=== PATIENT | female | born 1945 | race Caucasian/White ===

== ENCOUNTER 2018-08-24 11:42 | Emergency (ER) | payer OTHER ==
[2018-08-24 13:01] LABS: Hematocrit 44.5 % (36.0-45.0); RBC Red Blood Cell Count 4.81 M/uL (3.86-4.86)
--- NOTE | 2018-08-24 13:12 | RAD REPORT ---
EXAM DESCRIPTION: US - Extremity Venous Uni Ltd - 08/24/2018 1:08 pm CLINICAL HISTORY: Right leg pain and swelling COMPARISON: None. TECHNIQUE: Real-time sonographic evaluation of the right lower extremity deep venous systems was per formed. FINDINGS: Normal compressibility, flow augmentation, phasic flow and spontaneous flow are identified in the right lower extremity common femoral, superficial femoral, popliteal and posterior tibial vei ns. No intraluminal filling defects seen. IMPRESSION: No DVT in the right lower extremity.
[2018-08-24] MEDS ORDERED: MORPHINE 2 MG/ML SYR ONE (14:46)
[2018-08-24] MEDS ORDERED: ONDANSETRON 4 MG/2 ML VIAL ONE (14:46)
--- NOTE | 2018-08-24 14:50 | ER ---
Nurse's Notes [facility] Name: Renato Contreras Age: 73 yrs Sex: Female : 1945 Arrival Date: 08/24/2018 Time: 11:43 Bed 16 Private MD: Rayshawn Baum E Diagnosis: Cellulitis of the Right Lower Leg Presentation: 08/24 12:02 Presenting complaint: Child states: Hx of PAD w/ wound to R lower leg, had bypass ph approx 6 months ago in hopes of wound healing, reports that wound has since worsened and is now all the way around the R leg, redness and weeping noted, denies fever N/V/D. Transition of care: patient was not received from another setting of care. Onset of symptoms was August 24, 2018. Risk Assessment: Do you want to hurt yourself or someone else? Patient reports no desire to harm self or others. Initial Sepsis Screen: Does the patient meet any 2 criteria? No. Patient's initial sepsis screen is negative. Does the patient have a suspected source of infection? Yes: Skin breakdown/wound. Care prior to arrival: None. 12:02 Method Of Arrival: Wheelchair ph 12:02 Acuity: BRODY 3 ph Historical: - Allergies: 12:05 No Known Drug Allergies; ph - PMHx: 12:05 PAD; Atrial Fib; ph - PSHx: 12:05 Hysterectomy; Knee surgery; endovasular ablation; bypass; ph - Immunization history:: Adult Immunizations unknown. - Social history:: Smoking status: Patient/guardian denies using tobacco. - Ebola Screening: : No symptoms or risks identified at this time. Screenin:29 Abuse screen: Denies threats or abuse. Denies injuries from another. Nutritional aj screening: No deficits noted. Tuberculosis screening: No symptoms or risk factors identified. Fall Risk None identified. Assessment: 13:29 General: Appears in no apparent distress. comfortable, obese, Behavior is calm, aj cooperative, appropriate for age. Pain: Complains of pain in right leg. Neuro: Level of Consciousness is awake, alert, obeys commands, Oriented to person, place, time, situation, Appropriate for age. Respiratory: Airway is patent Respiratory effort is even, unlabored, Respiratory pattern is regular, symmetrical. Derm: Skin is intact, is healthy with good turgor, Skin is pink, warm \T\ dry. normal, Wound noted lateral aspect of right calf, right ankle, right chong and anterior aspect of right ankle. 15:12 Reassessment: Patient appears in no apparent distress at this time. No changes from aj previously documented assessment. Patient and/or family updated on plan of care and expected duration. Pain level reassessed. Patient is alert, oriented x 3, equal unlabored respirations, skin warm/dry/pink. Vital Signs: 12:05 BP 119 / 91; Pulse 82; Resp 18; Temp 98.5(TE); Pulse Ox 96% on R/A; Weight 108.86 kg; ph Height 5 ft. 4 in. (162.56 cm); 13:25 BP 163 / 98; Pulse 72; Resp 16; Temp 98.2(O); Pulse Ox 97% ; mh5 12:05 Body Mass Index 41.20 (108.86 kg, 162.56 cm) ph ED Course: 11:43 Patient arrived in ED. as 11:43 Rayshawn Baum MD is Private Physician. as 11:59 Karissa Fraire, AFNY is Primary Nurse. aj 12:00 Manuel Gomes PA is PHCP. [facility] 12:00 Carlitos Greco MD is Attending Physician. [facility] 12:04 Triage completed. ph 12:05 Arm band placed on Patient placed in an exam room, on a stretcher, on pulse oximetry. ph 12:15 Bed in low position. Call light in reach. Side rails up X 1. Side rails up X2. Warm jp3 blanket given. Verbal reassurance given. 12:15 Pulse ox on. NIBP on. jp3 12:20 Wound culture swab sent to lab. jp3 12:25 Missed attempt(s): 24 gauge in left antecubital area. Bleeding controlled, band aid jp3 applied, catheter tip intact. 12:30 Initial lab(s) drawn, by me, sent to lab. First set of blood cultures drawn by me. jp3 Inserted saline lock: 24 gauge in right wrist, using aseptic technique. Blood collected. 12:45 Second set of blood cultures drawn. jp3 12:53 Lactate Sent. jp3 12:53 Wound Culture Sent. jp3 12:53 Blood Culture Adult (2) Sent. jp3 12:53 Basic Metabolic Panel Sent. jp3 12:53 CBC w/o diff Sent. jp3 13:04 US Extremity Venous Unilateral Ltd In Process Unspecified. EDMS 14:50 Rayshawn Baum MD is Referral Physician. anayeli 15:12 No provider procedures requiring assistance completed. IV discontinued, intact, aj bleeding controlled, No redness/swelling at site. Pressure dressing applied. Administered Medications: 14:23 Drug: Clindamycin 900 mg Route: IVPB; Infused Over: 30 mins; Site: right hand; aj 15:14 Follow up: Response: No adverse reaction; IV Status: Completed infusion; IV Intake: 50mlaj 14:40 Drug: morphine 2 mg Route: IVP; Site: right hand; aj 15:13 Follow up: Response: No adverse reaction; Pain is decreased aj 14:40 Drug: Zofran 4 mg Route: IVP; Site: right hand; aj 15:14 Follow up: Response: No adverse reaction aj Intake: 15:14 IV: 50ml; Total: 50ml. aj Outcome: 14:50 Discharge ordered by . anayeli 15:12 Discharged to home ambulatory, with family. aj 15:12 Condition: good 15:12 Discharge instructions given to patient, family, Instructed on discharge instructions, follow up and referral plans. medication usage, Demonstrated understanding of instructions, follow-up care, medications, Prescriptions given X 2. 15:26 Patient left the ED. aj Addendum: 08/28/2018 13:40 Addendum: Culture Results: Positive wound culture. Bacteria is resistant to, has s s intermediate sensitivity, or is not tested against prescribed antibiotics. Report given to TIFFANY for further evaluation and then to barrelhead inspector for follow up with patient. Phone call Attempt #1 no answer, left VM. Signatures: Dispatcher [employer] EDMS Karissa Fraire, Manuel Benavides RN, PA PA jmm Martinez, Amelia as Smirch, Shelby, RN RN ss Hall, Patricia, RN RN ph Martinez, Maria mh5 Pisarski, Jacob jp3
--- NOTE | 2018-08-24 14:50 | EDPHYS ---
Physician Documentation [facility] Name: Renato Contreras Age: 73 yrs Sex: Female : 1945 Arrival Date: 08/24/2018 Time: 11:43 Bed 16 Private MD: Rayshawn Baum E ED Physician Carlitos Greco HPI: 08/24 12:19 This 73 yrs old Female presents to ER via Wheelchair with complaints of Leg jmm Swelling. 12:19 The complaints affect the lateral aspect of right calf, right calf, right Achilles, jmm medial aspect of right calf and right chong. Onset: The symptoms/episode began/occurred gradually, 2.5 week(s) ago. Modifying factors: The symptoms are alleviated by nothing. the symptoms are aggravated by nothing. Associated signs and symptoms: Pertinent positives: swelling, Pertinent negatives fever, numbness. This is a 73 year old female with a history of atrial fib that presents to the ED with complaints of right lower extremity swelling and redness for 3 weeks worsening today. Patient complains of ongoing pain. Patient denies fever or chills. . Historical: - Allergies: 12:05 No Known Drug Allergies; ph - PMHx: 12:05 PAD; Atrial Fib; ph - PSHx: 12:05 Hysterectomy; Knee surgery; endovasular ablation; bypass; ph - Immunization history:: Adult Immunizations unknown. - Social history:: Smoking status: Patient/guardian denies using tobacco. - Ebola Screening: : No symptoms or risks identified at this time. ROS: 12:19 Constitutional: Negative for fever, chills, and weight loss, Cardiovascular: Negative jmm for chest pain, palpitations, and edema, Respiratory: Negative for shortness of breath, cough, wheezing, and pleuritic chest pain. 12:19 MS/extremity: Positive for erythema, pain, swelling. 12:19 Skin: Positive for erythema, swelling. 12:19 All other systems are negative. Exam: 12:19 Constitutional: This is a well developed, well nourished patient who is awake, alert, jmm and in no acute distress. Head/Face: atraumatic. Eyes: EOMI, no conjunctival erythema appreciated ENT: Moist Mucus Membranes Neck: Trachea midline, Supple Chest/axilla: Normal chest wall appearance and motion. Cardiovascular: Regular rate and rhythm. No edema appreciated Respiratory: Normal respirations, no respiratory distress appreciated Abdomen/GI: Non distended, soft Back: Normal ROM 12:19 Musculoskeletal/extremity: edema noted to the right lower extremity, full dorsalis pulse appreciated, compartments are soft, NVI. 12:19 Skin: erythema and induration noted circumferentially to the right lower leg, TTP. 12:19 Neuro: Orientation: is normal, Mentation: is normal, Memory: is normal. 12:19 Psych: Behavior/mood is pleasant, cooperative. Vital Signs: 12:05 BP 119 / 91; Pulse 82; Resp 18; Temp 98.5(TE); Pulse Ox 96% on R/A; Weight 108.86 kg; ph Height 5 ft. 4 in. (162.56 cm); 13:25 BP 163 / 98; Pulse 72; Resp 16; Temp 98.2(O); Pulse Ox 97% ; mh5 12:05 Body Mass Index 41.20 (108.86 kg, 162.56 cm) ph MDM: 12:19 Patient medically screened. anayeli 21:48 Data reviewed: vital signs, nurses notes. Counseling: I had a detailed discussion with anayeli the patient and/or guardian regarding: the historical points, exam findings, and any diagnostic results supporting the discharge/admit diagnosis, lab results, radiology results, the need for outpatient follow up, to return to the emergency department if symptoms worsen or persist or if there are any questions or concerns that arise at home. Refusal of service: The patient/guardian displays adequate decision making capability and despite a detailed discussion of alternatives, benefits, risks, and consequences refuses: Admission to the hospital for further work-up and treatment. 08/24 12:03 Order name: CBC w/o diff; Complete Time: 13:14 08/24 12:03 Order name: Basic Metabolic Panel; Complete Time: 13:28 08/24 12:03 Order name: Blood Culture Adult (2) 08/24 12:03 Order name: Wound Culture 08/24 12:03 Order name: Lactate; Complete Time: 14:04 08/24 12:23 Order name: US Extremity Venous Unilateral Ltd; Complete Time: 13:14 [facility] 08/24 12:03 Order name: IV; Complete Time: 12:53 08/24 13:04 Order name: Labs - recollect needed; Complete Time: 13:21 ag Administered Medications: 14:23 Drug: Clindamycin 900 mg Route: IVPB; Infused Over: 30 mins; Site: right hand; aj 15:14 Follow up: Response: No adverse reaction; IV Status: Completed infusion; IV Intake: 50mlaj 14:40 Drug: morphine 2 mg Route: IVP; Site: right hand; aj 15:13 Follow up: Response: No adverse reaction; Pain is decreased aj 14:40 Drug: Zofran 4 mg Route: IVP; Site: right hand; aj 15:14 Follow up: Response: No adverse reaction aj Disposition: 08/25 07:51 Co-signature as Attending Physician, Carlitos Greco MD I agree with the assessment and kdr plan of care. Disposition: 08/24/18 14:50 Discharged to Home. Impression: Cellulitis of the Right Lower Leg. - Condition is Stable. - Discharge Instructions: Cellulitis, Adult. - Prescriptions for Clindamycin HCl 300 mg Oral Capsule - take 1 capsule by ORAL route every 6 hours for 10 days; 40 capsule. Ultracet 37.5- 325 mg Oral Tablet - take 1 tablet by ORAL route every 6 hours - for up to 5 days; do not exceed 8 tablets per day.; 20 tablet. - Medication Reconciliation Form, Thank You Letter, Antibiotic Education, Prescription Opioid Use form. - Follow up: Rayshawn Baum MD; When: 2 - 3 days; Reason: Recheck today's complaints, Continuance of care, Re-evaluation by your physician. Signatures: Dispatcher [employer] Karissa Lozoya RN RN aj Rittger, Kevin, MD MD kdr Mickail, Joel, PA PA jmm Gallardo, Ana ag Hall, Patricia, RN RN ph Corrections: (The following items were deleted from the chart) 08/24 15:26 14:50 08/24/2018 14:50 Discharged to Home. Impression: Cellulitis of the Right Lower aj Leg. Condition is Stable. Forms are Medication Reconciliation Form, Thank You Letter, Antibiotic Education, Prescription Opioid Use. Follow up: Rayshawn Baum; When: 2 - 3 days; Reason: Recheck today's complaints, Continuance of care, Re-evaluation by your physician. anayeli
[2018-08-24 15:47] VITALS: BP 163/98; TEMP 98.2; O2SAT 97
== END 2018-08-24 15:26 | disposition home or self-care (01) ==
LOC: ER 11:42
DX: L03.115 Cellulitis of right lower limb (principal); I48.91 Unspecified atrial fibrillation
CPT/HCPCS: 96365; 87040 ×2; 87070; 80048; 36415; 87205; 83605; 87077 ×2; 87186 ×2; 85027; 93971; 96375; 99284; J2270; J2405

== ENCOUNTER 2018-09-19 14:49 | Observation (INO) | payer OTHER ==
[2018-09-19] MEDS ORDERED: FAMOTIDINE 20 MG/2 ML VIAL IV ONE (15:26)
[2018-09-19] MEDS ORDERED: METOPROLOL TARTRATE 5 MG/5 ML INJ IV ONE ×2 (15:26→16:09)
[2018-09-19] MEDS ORDERED: ENOXAPARIN 100 MG/ML SYR SQ ONE (15:26)
[2018-09-19] MEDS ORDERED: NA CHLORIDE 0.9% 1,000 ML ONE ×2 (15:26→16:31)
[2018-09-19] MEDS ORDERED: METOPROLOL TAR 50 MG TAB ONE (15:30)
[2018-09-19 15:37] LABS: Protime INR 1.33
[2018-09-19 15:38] LABS: Absolute Lymphocytes (CBC) 2.8 K/uL (0.7-4.9); Basophils % 0.7 % (0-1.3); Hematocrit 47.1 % (36.0-45.0)
--- NOTE | 2018-09-19 15:43 | EDPHYS ---
Physician Documentation [facility] Name: Renato Contreras Age: 73 yrs Sex: Female : 1945 Arrival Date: 09/19/2018 Time: 14:51 Bed 3 Private MD: Rayshawn Baum E ED Physician Eliu Mora HPI: 09/19 15:24 This 73 yrs old Female presents to ER via Ambulatory with complaints of dread Palpitations. 15:24 The patient presents with a history of irregular heart beat, heart racing. Context: The dread symptoms occur at rest, with light activity. Onset: The symptoms/episode began/occurred just prior to arrival. Duration: The patient or guardian reports a single episode, that is still ongoing. Modifying factors: The symptoms are aggravated by nothing. The symptoms are alleviated by nothing. Associated signs and symptoms: The patient has no apparent associated signs or symptoms. Severity of symptoms: At their worst the symptoms were mild in the emergency department the symptoms are unchanged. Historical: - Allergies: 14:55 No Known Drug Allergies; hj - Home Meds: 16:04 tramadol 50 mg Oral tab 1 tab every 6 hrs PRN [Active]; tw2 - PMHx: 14:55 Atrial Fib; PAD; hj - PSHx: 14:55 Hysterectomy; Knee surgery; endovasular ablation; bypass; hj - Immunization history:: Adult Immunizations. - Social history:: Smoking status: . - Family history:: not pertinent. - Ebola Screening: : Patient denies exposure to infectious person Patient denies travel to an Ebola-affected area in the 21 days before illness onset. ROS: 15:24 Constitutional: Negative for fever, chills, and weight loss, Eyes: Negative for injury, dread pain, redness, and discharge, ENT: Negative for injury, pain, and discharge, Neck: Negative for injury, pain, and swelling, Respiratory: Negative for shortness of breath, cough, wheezing, and pleuritic chest pain, Abdomen/GI: Negative for abdominal pain, nausea, vomiting, diarrhea, and constipation, Back: Negative for injury and pain, : Negative for injury, bleeding, discharge, and swelling, MS/Extremity: Negative for injury and deformity, Skin: Negative for injury, rash, and discoloration, Neuro: Negative for headache, weakness, numbness, tingling, and seizure, Psych: Negative for depression, anxiety, suicide ideation, homicidal ideation, and hallucinations, Allergy/Immunology: Negative for hives, rash, and allergies, Endocrine: Negative for neck swelling, polydipsia, polyuria, polyphagia, and marked weight changes, Hematologic/Lymphatic: Negative for swollen nodes, abnormal bleeding, and unusual bruising. 15:24 Cardiovascular: Positive for palpitations. Exam: 15:24 Constitutional: This is a well developed, well nourished patient who is awake, alert, dread and in no acute distress. Head/Face: Normocephalic, atraumatic. Eyes: Pupils equal round and reactive to light, extra-ocular motions intact. Lids and lashes normal. Conjunctiva and sclera are non-icteric and not injected. Cornea within normal limits. Periorbital areas with no swelling, redness, or edema. ENT: Nares patent. No nasal discharge, no septal abnormalities noted. Tympanic membranes are normal and external auditory canals are clear. Oropharynx with no redness, swelling, or masses, exudates, or evidence of obstruction, uvula midline. Mucous membranes moist. Neck: Trachea midline, no thyromegaly or masses palpated, and no cervical lymphadenopathy. Supple, full range of motion without nuchal rigidity, or vertebral point tenderness. No Meningismus. Chest/axilla: Normal chest wall appearance and motion. Nontender with no deformity. No lesions are appreciated. Respiratory: Lungs have equal breath sounds bilaterally, clear to auscultation and percussion. No rales, rhonchi or wheezes noted. No increased work of breathing, no retractions or nasal flaring. Abdomen/GI: Soft, non-tender, with normal bowel sounds. No distension or tympany. No guarding or rebound. No evidence of tenderness throughout. Back: No spinal tenderness. No costovertebral tenderness. Full range of motion. Skin: Warm, dry with normal turgor. Normal color with no rashes, no lesions, and no evidence of cellulitis. MS/ Extremity: Pulses equal, no cyanosis. Neurovascular intact. Full, normal range of motion. Neuro: Awake and alert, GCS 15, oriented to person, place, time, and situation. Cranial nerves II-XII grossly intact. Motor strength 5/5 in all extremities. Sensory grossly intact. Cerebellar exam normal. Normal gait. Psych: Awake, alert, with orientation to person, place and time. Behavior, mood, and affect are within normal limits. 15:24 Cardiovascular: Rate: tachycardic, Rhythm: irregularly irregular, Pulses: Pulses are 4+ in bilateral radial, brachial, femoral, popliteal, posterior tibial and and dorsalis pedis arteries.. Heart sounds: normal, Edema: is not appreciated, JVD: is not appreciated. Vital Signs: 14:56 BP 138 / 68; Pulse 165; Resp 18; Temp 98.0(O); Pulse Ox 96% on R/A; Weight 108.86 kg; hj Height 5 ft. 4 in. (162.56 cm); Pain 0/10; 15:32 BP 128 / 54; Pulse 155; Resp 19; Pulse Ox 95% on R/A; tw2 15:40 BP 119 / 94; Pulse 150; Resp 19; Pulse Ox 96% ; sv 16:04 BP 101 / 86; Pulse 149; Resp 17; Pulse Ox 95% on R/A; tw2 16:10 BP 79 / 66; Pulse 150; tw2 16:19 BP 84 / 54; Pulse 129; Resp 19; Pulse Ox 95% on R/A; tw2 16:23 BP 127 / 70; Pulse 128; Resp 19; Pulse Ox 95% on R/A; tw2 16:28 BP 119 / 81; Pulse 126; Resp 18; Pulse Ox 95% ; sv 16:33 BP 127 / 58; Pulse 141; Resp 17; Pulse Ox 95% on R/A; tw2 16:51 BP 74 / 60; Pulse 38; tw2 16:57 BP 126 / 57; Pulse 56; Resp 18; Pulse Ox 96% on R/A; tw2 17:11 BP 117 / 58; Pulse 56; Resp 16; Pulse Ox 97% on R/A; tw2 14:56 Body Mass Index 41.19 (108.86 kg, 162.56 cm) hj 16:04 provider aware tw2 16:10 provider notified. tw2 16:19 provider aware. tw2 16:33 provider notified. tw2 16:51 provider notified, pt is NAD, a\T\o x4, EKG at bedside at this time. tw2 MDM: 15:05 Patient medically screened. [facility] 15:26 Data reviewed: vital signs, nurses notes, lab test result(s), EKG, radiologic studies, dread plain films. 09/19 15:09 Order name: Basic Metabolic Panel; Complete Time: 16:52 [facility] 09/19 15:09 Order name: CBC with Diff; Complete Time: 16:07 [facility] 09/19 15:09 Order name: LFT's; Complete Time: 16:52 [facility] 09/19 15:09 Order name: Magnesium; Complete Time: 16:52 [facility] 09/19 15:09 Order name: NT PRO-BNP; Complete Time: 16:52 [facility] 09/19 15:09 Order name: PT-INR; Complete Time: 16:07 [facility] 09/19 15:09 Order name: Troponin (emerg Dept Use Only); Complete Time: 16:52 [facility] 09/19 15:09 Order name: XRAY Chest (1 view); Complete Time: 16:07 [facility] 09/19 15:09 Order name: TSH; Complete Time: 16:52 [facility] 09/19 15:31 Order name: Urine Dipstick--Ancillary (enter results); Complete Time: 16:07 bd 09/19 16:10 Order name: Urine Culture [facility] 09/19 16:32 Order name: T4 Free; Complete Time: 16:52 EDMS 09/19 15:09 Order name: EKG; Complete Time: 15:10 [facility] 09/19 15:09 Order name: Cardiac monitoring; Complete Time: 15:45 [facility] 09/19 16:52 Order name: EKG; Complete Time: 16:55 [facility] 09/19 15:09 Order name: EKG - Nurse/Tech; Complete Time: 15:46 [facility] 09/19 15:09 Order name: IV Saline Lock; Complete Time: 15:45 [facility] 09/19 15:09 Order name: Labs collected and sent; Complete Time: 15:45 [facility] 09/19 15:09 Order name: O2 Per Protocol; Complete Time: 15:45 [facility] 09/19 15:09 Order name: O2 Sat Monitoring; Complete Time: 15:46 [facility] 09/19 16:52 Order name: EKG - Nurse/Tech; Complete Time: 16:58 [facility] Administered Medications: 15:25 Drug: Lopressor 2.5 mg Route: IVP; Site: right forearm; tw2 15:32 Follow up: BP 128 / 54; Pulse 155 bpm; Resp 19 bpm; Pulse Ox 95% RA; Response: No tw2 adverse reaction; No change in condition 15:26 Drug: Pepcid 20 mg Route: IVP; Site: right forearm; tw2 15:41 Follow up: Response: No adverse reaction tw2 15:31 Drug: NS 0.9% 500 ml Route: IV; Rate: bolus; Site: right forearm; tw2 16:21 Follow up: Response: No adverse reaction; IV Status: Completed infusion; IV Intake: tw2 500ml 15:31 Drug: Lopressor (metoprolol TARTRATE) 50 mg Route: PO; tw2 15:46 Follow up: Response: No adverse reaction sv 15:31 Drug: Lopressor 2.5 mg Route: IVP; Site: right forearm; tw2 15:40 Follow up: Response: No adverse reaction; No change in condition; Cardiac rhythm is tw2 unchanged; Other; Other, no adverse condition 15:31 Drug: Lovenox 100 mg Route: Sub-Q; Site: left lower abdomen; tw2 15:39 Follow up: Response: No adverse reaction tw2 16:09 Not Given (pts condition bp 84/64 provider notified.): Lopressor 5 mg IVP once; Hold tw2 for SBP <100 or HR <60. 16:14 Drug: NS 0.9% 1000 ml Route: IV; Rate: 125 ml/hr; Site: right forearm; tw2 17:14 Follow up: IV Status: Infusion continued upon admission tw2 17:50 Follow up: IV Status: Infusion continued upon admission tw2 16:20 Drug: Digoxin 0.5 mg Route: IVP; Site: right forearm; tw2 16:47 Follow up: Response: No adverse reaction tw2 16:20 Drug: Rocephin 1 grams Route: IV; Rate: per protocol; Site: right forearm; tw2 16:25 Follow up: Response: No adverse reaction; IV Status: Completed infusion tw2 16:26 CANCELLED (pts condition): Lopressor 2.5 mg IVP once; Hold for SBP <100 or HR <60. tw2 16:26 CANCELLED (pts condition): Lopressor 2.5 mg IVP once; Hold for SBP <100 or HR <60. tw2 16:38 Drug: Magnesium Sulfate 1 grams Route: IVPB; Infused Over: 1 hrs; Site: right forearm; tw2 16:50 Not Given (Duplicate Order): NS 0.9% 1000 ml IV at 1 bolus Per protocol; 1000 mL bolus tw2 16:56 Drug: NS 0.9% 250 ml Route: IV; Rate: bolus; Site: right forearm; ss 17:10 Follow up: Response: No adverse reaction; IV Status: Completed infusion; IV Intake: tw2 250ml Disposition: 09/19/18 15:43 Hospitalization ordered by Felicia Lawrence for Inpatient Admission. Preliminary diagnosis are Palpitations, Atrial fibrillation and flutter - RVR, Weakness. - Bed requested for Telemetry/MedSurg (Inpatient). - Status is Inpatient Admission. sv - Condition is Stable. - Problem is new. - Symptoms have improved. UTI on Admission? No Signatures: Dispatcher [employer] EDMS Sunni Covarrubias Stephanie, RN RN sv Anderson, Corey, MD MD cha Smirch, Shelby, RN RN ss Rafael Metz RN RN Victoria Dooley RN RN tw2 Corrections: (The following items were deleted from the chart) 15:43 15:43 Hospitalization Ordered by Felicia Lawrence MD for Inpatient Admission. Preliminary dread diagnosis is Palpitations; Atrial fibrillation and flutter; Weakness. Bed requested for Telemetry/MedSurg (Inpatient). Status is Inpatient Admission. Condition is Stable. Problem is new. Symptoms have improved. UTI on Admission? No. dread 16:26 16:13 Lopressor 2.5 mg IVP once; Hold for SBP <100 or HR <60. ordered. dread tw2 16:26 16:13 Lopressor 2.5 mg IVP once; Hold for SBP <100 or HR <60. ordered. dread tw2 16:42 15:43 09/19/2018 15:43 Hospitalization Ordered by Felicia Lawrence MD for Inpatient bd Admission. Preliminary diagnosis is Palpitations; Atrial fibrillation and flutter - RVR; Weakness. Bed requested for Telemetry/MedSurg (Inpatient). Status is Inpatient Admission. Condition is Stable. Problem is new. Symptoms have improved. UTI on Admission? No. dread 17:13 16:52 [place] ordered. dread tw2 17:44 16:42 09/19/2018 15:43 Hospitalization Ordered by Felicia Lawrence MD for Inpatient sv Admission. Preliminary diagnosis is Palpitations; Atrial fibrillation and flutter - RVR; Weakness. Bed requested for Telemetry/MedSurg (Inpatient). Status is Inpatient Admission. Condition is Stable. Problem is new. Symptoms have improved. UTI on Admission? No. bd
--- NOTE | 2018-09-19 15:43 | ER ---
Nurse's Notes [facility] Name: Renato Contreras Age: 73 yrs Sex: Female : 1945 Arrival Date: 09/19/2018 Time: 14:51 Bed 3 Private MD: Rayshawn Baum E Diagnosis: Palpitations;Atrial fibrillation and flutter-RVR;Weakness Presentation: 09/19 14:54 Presenting complaint: Patient states: from wound healing, i was brought here because my hj pulse is high- 160's; denies chest pain; denies SOB;. Transition of care: patient was not received from another setting of care. Onset of symptoms was September 19, 2018. Risk Assessment: Do you want to hurt yourself or someone else? Patient reports no desire to harm self or others. Initial Sepsis Screen: Does the patient meet any 2 criteria? No. Patient's initial sepsis screen is negative. Does the patient have a suspected source of infection? No. Patient's initial sepsis screen is negative. Care prior to arrival: None. 14:54 Method Of Arrival: Ambulatory 14:54 Acuity: BRODY 2 hj 15:04 Acuity: BRODY 1 ss Historical: - Allergies: 14:55 No Known Drug Allergies; hj - Home Meds: 16:04 tramadol 50 mg Oral tab 1 tab every 6 hrs PRN [Active]; tw2 - PMHx: 14:55 Atrial Fib; PAD; hj - PSHx: 14:55 Hysterectomy; Knee surgery; endovasular ablation; bypass; hj - Immunization history:: Adult Immunizations. - Social history:: Smoking status: . - Family history:: not pertinent. - Ebola Screening: : Patient denies exposure to infectious person Patient denies travel to an Ebola-affected area in the 21 days before illness onset. Screenin:00 Fall Risk Secondary diagnosis (15 points) impaired mobility. tw2 15:24 Abuse screen: Denies threats or abuse. Denies injuries from another. Nutritional ss screening: No deficits noted. Tuberculosis screening: Never had TB. Assessment: 15:00 General: Appears in no apparent distress. obese, Behavior is calm, cooperative, tw2 appropriate for age. Pain: Denies pain. Neuro: Level of Consciousness is awake, alert, obeys commands, Oriented to person, place, time, situation. Cardiovascular: Heart tones S1 S2 Patient's skin is warm and dry. Rhythm is SVT. Respiratory: Airway is patent Respiratory effort is even, unlabored, Respiratory pattern is regular, symmetrical, Breath sounds are clear bilaterally. GI: No signs and/or symptoms were reported involving the gastrointestinal system. Abdomen is round non-distended, obese, Bowel sounds present X 4 quads. : No signs and/or symptoms were reported regarding the genitourinary system. EENT: No signs and/or symptoms were reported regarding the EENT system. Derm: No signs and/or symptoms reported regarding the dermatologic system. Musculoskeletal: Range of motion: intact in all extremities. 16:24 Reassessment: Patient appears in no apparent distress at this time. Patient and/or tw2 family updated on plan of care and expected duration. Pain level reassessed. Patient is alert, oriented x 3, equal unlabored respirations, skin warm/dry/pink. 16:52 Reassessment: Patient appears in no apparent distress at this time. pt A\T\O x 3, EKG at tw2 bedside, Dr. Mora aware of pts condition. 16:57 Reassessment: Patient appears in no apparent distress at this time. Patient and/or tw2 family updated on plan of care and expected duration. Pain level reassessed. will continue to monitor pts condition prior to taking pt to floor room. 17:30 Reassessment: Patient appears in no apparent distress at this time. Patient and/or tw2 family updated on plan of care and expected duration. Pain level reassessed. Patient is alert, oriented x 3, equal unlabored respirations, skin warm/dry/pink. Reassessment: Dr. Lawrence at bedside on the floor, pts remained stable, HR 54, BP 112/62 A\T\Ox3, Dr. Lawrence notified of pts change in HR prior to arriving on floor. Vital Signs: 14:56 BP 138 / 68; Pulse 165; Resp 18; Temp 98.0(O); Pulse Ox 96% on R/A; Weight 108.86 kg; hj Height 5 ft. 4 in. (162.56 cm); Pain 0/10; 15:32 BP 128 / 54; Pulse 155; Resp 19; Pulse Ox 95% on R/A; tw2 15:40 BP 119 / 94; Pulse 150; Resp 19; Pulse Ox 96% ; sv 16:04 BP 101 / 86; Pulse 149; Resp 17; Pulse Ox 95% on R/A; tw2 16:10 BP 79 / 66; Pulse 150; tw2 16:19 BP 84 / 54; Pulse 129; Resp 19; Pulse Ox 95% on R/A; tw2 16:23 BP 127 / 70; Pulse 128; Resp 19; Pulse Ox 95% on R/A; tw2 16:28 BP 119 / 81; Pulse 126; Resp 18; Pulse Ox 95% ; sv 16:33 BP 127 / 58; Pulse 141; Resp 17; Pulse Ox 95% on R/A; tw2 16:51 BP 74 / 60; Pulse 38; tw2 16:57 BP 126 / 57; Pulse 56; Resp 18; Pulse Ox 96% on R/A; tw2 17:11 BP 117 / 58; Pulse 56; Resp 16; Pulse Ox 97% on R/A; tw2 14:56 Body Mass Index 41.19 (108.86 kg, 162.56 cm) hj 16:04 provider aware tw2 16:10 provider notified. tw2 16:19 provider aware. tw2 16:33 provider notified. tw2 16:51 provider notified, pt is NAD, a\T\o x4, EKG at bedside at this time. tw2 ED Course: 14:51 Patient arrived in ED. rg4 14:52 Rayshawn Baum MD is Private Physician. rg4 14:55 Triage completed. hj 14:55 Arm band placed on left wrist. hj 15:05 Eliu Mora MD is Attending Physician. dread 15:06 EKG done, by computer technician. reviewed by Eliu Mora MD. sm3 15:24 Patient has correct armband on for positive identification. Placed in gown. Bed in low ss position. Call light in reach. Side rails up X 1. radiation monitor on. Pulse ox on. NIBP on. 15:24 Inserted saline lock: 22 gauge in right forearm, using aseptic technique. Blood ss collected. 15:26 Victoria Dooley, FANY is Primary Nurse. tw2 15:42 Felicia Lawrence MD is Hospitalizing Provider. dread 15:43 XRAY Chest (1 view) In Process Unspecified. EDMS 17:15 No provider procedures requiring assistance completed. Patient admitted, IV remains in tw2 place. Administered Medications: 15:25 Drug: Lopressor 2.5 mg Route: IVP; Site: right forearm; tw2 15:32 Follow up: BP 128 / 54; Pulse 155 bpm; Resp 19 bpm; Pulse Ox 95% RA; Response: No tw2 adverse reaction; No change in condition 15:26 Drug: Pepcid 20 mg Route: IVP; Site: right forearm; tw2 15:41 Follow up: Response: No adverse reaction tw2 15:31 Drug: NS 0.9% 500 ml Route: IV; Rate: bolus; Site: right forearm; tw2 16:21 Follow up: Response: No adverse reaction; IV Status: Completed infusion; IV Intake: tw2 500ml 15:31 Drug: Lopressor (metoprolol TARTRATE) 50 mg Route: PO; tw2 15:46 Follow up: Response: No adverse reaction sv 15:31 Drug: Lopressor 2.5 mg Route: IVP; Site: right forearm; tw2 15:40 Follow up: Response: No adverse reaction; No change in condition; Cardiac rhythm is tw2 unchanged; Other; Other, no adverse condition 15:31 Drug: Lovenox 100 mg Route: Sub-Q; Site: left lower abdomen; tw2 15:39 Follow up: Response: No adverse reaction tw2 16:09 Not Given (pts condition bp 84/64 provider notified.): Lopressor 5 mg IVP once; Hold tw2 for SBP <100 or HR <60. 16:14 Drug: NS 0.9% 1000 ml Route: IV; Rate: 125 ml/hr; Site: right forearm; tw2 17:14 Follow up: IV Status: Infusion continued upon admission tw2 17:50 Follow up: IV Status: Infusion continued upon admission tw2 16:20 Drug: Digoxin 0.5 mg Route: IVP; Site: right forearm; tw2 16:47 Follow up: Response: No adverse reaction tw2 16:20 Drug: Rocephin 1 grams Route: IV; Rate: per protocol; Site: right forearm; tw2 16:25 Follow up: Response: No adverse reaction; IV Status: Completed infusion tw2 16:26 CANCELLED (pts condition): Lopressor 2.5 mg IVP once; Hold for SBP <100 or HR <60. tw2 16:26 CANCELLED (pts condition): Lopressor 2.5 mg IVP once; Hold for SBP <100 or HR <60. tw2 16:38 Drug: Magnesium Sulfate 1 grams Route: IVPB; Infused Over: 1 hrs; Site: right forearm; tw2 16:50 Not Given (Duplicate Order): NS 0.9% 1000 ml IV at 1 bolus Per protocol; 1000 mL bolus tw2 16:56 Drug: NS 0.9% 250 ml Route: IV; Rate: bolus; Site: right forearm; ss 17:10 Follow up: Response: No adverse reaction; IV Status: Completed infusion; IV Intake: tw2 250ml Intake: 16:21 IV: 500ml; Total: 500ml. tw2 17:10 IV: 250ml; Total: 750ml. tw2 Outcome: 15:43 Decision to Hospitalize by Provider. dread 17:16 Admitted to Med/surg accompanied by nurse, via stretcher, room 231, on monitor, with tw2 chart, Report called to FANY oMreno 17:16 Condition: stable 17:16 Instructed on the need for admit. 17:44 Patient left the ED. sv Signatures: Dispatcher [employer] EDAlyse Lott, RN RN Eliu Ruff MD MD cha Smirch, Shelby RN RN Rafael Arana RN RN hj Wise, Tara, RN RN Luann Browne 4 Regina Chang 3 Corrections: (The following items were deleted from the chart) 14:58 14:56 BP 138 / 68; Pulse 155bpm; Resp 18bpm; Pulse Ox 96% RA; Temp 98.0F Oral; 108.86 hj kg; Height 5 ft. 4 in.; BMI: 41.2; Pain 0/10; hj
--- NOTE | 2018-09-19 15:44 | RAD REPORT ---
EXAM DESCRIPTION: RAD - Chest Single View - 09/19/2018 3:39 pm CLINICAL HISTORY: Cough, tachycardia COMPARISON: November 2014 TECHNIQUE: AP portable chest image was obtained 1534 hours . FINDINGS: No peripheral mass, consolidation or significant failure finding. Lung markings are promin ent but not clearly different from comparison. Resuscitation paddles overlie the lateral right chest and lateral lower left chest. Heart and vasculature are normal. No measurable pleural effusion and no pneumothorax. No acute bony abnormality seen. No acute aortic findings suspected. IMPRESSION: No acute cardiopulmonary process. Chronic interstitial pattern matches comparison study.
[2018-09-19 15:49] LABS: Urine Blood NEGATIVE (NEG); Urine Glucose NEGATIVE (NEG); Urine Protein NEGATIVE (NEG)
[2018-09-19 16:05] LABS: ALT/SGPT 102 U/L (12-78); AST/SGOT 92 U/L (15-37); Albumin 3.2 g/dL (3.4-5.0); Alkaline Phosphatase 153 U/L (45-117); BUN Blood Urea Nitrogen 34 mg/dL (7-18); Bicarbonate 24 mmol/L (21-32); Bilirubin Direct 0.3 mg/dL (0-0.2); Bilirubin Total 1.1 mg/dL (0.2-1.0); Glucose Level 95 mg/dL (74-106); Magnesium 2.4 mg/dL (1.8-2.4); NT PRO-BNP 12983 pg/mL (<125); Potassium 4.1 mmol/L (3.5-5.1); Protein, Total 7.2 g/dL (6.4-8.2); Sodium Level 141 mmol/L (136-145); Troponin (Emerg Dept Use Only) < 0.02 ng/mL (0.0-0.045)
[2018-09-19] MEDS ORDERED: DIGOXIN 0.25 MG/ML AMP ONE (16:14)
[2018-09-19] MEDS ORDERED: CEFTRIAXONE/SWI 1gm 1 GM/10 ML SYR ONE (16:14)
[2018-09-19] MEDS ORDERED: MAGNESIUM SULFATE 1 gm IVPB 1 GM/100 ML BAG IV ONE (16:31)
--- NOTE | 2018-09-19 17:07 | P.HP ---
Certification for Inpatient Patient admitted to: Observation With expected LOS: <2 Midnights Patient will require the following post-hospital care: None Practitioner: I am a practitioner with admitting privileges, knowledge of patient current condition, hospital course, and medical plan of care. Services: Services provided to patient in accordance with Admission requirements found in Title 42 Section 412.3 of the Code of Federal Regulations Patient History Date of Service: 09/19/18 Primary Care Provider: Dr Baum Reason for admission: Chest palpation History of Present Illness: 73 y/o F with H/o Afib, PVD and Hypothyroidism who presented to the ED from [facility] after being found to have HR of 160. 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 She is diagnosed with Afib and hypothyroidism for a while but does not take any medication. Denied any Fever, chills, SOB or Chest pain at this time. In the Er she was Given lopressor 2.5 mg x 2, Metoprolol 50mg PO x 1 and Digxoin x1 which dropped her BP and HR down to 30. Pt still remained asymptomatic. Pt was however admitted to the hospital for Afib with RVR Allergies No Known Drug Allergies Allergy (Unverified 10/28/14 21:56) Unknown Home medications list reviewed: Yes Home Medications: Clindamycin HCl 1 mg PO Q6HR 08/31/18 Tramadol HCl/Acetaminophen [Tramadol-Acetaminophn 37.5-325] 1 tab PO Q6HR PRN - Past Medical/Surgical History Has patient received pneumonia vaccine in the past: No Diabetic: No -: Chronic Bronchitis -: hypothyroidism -: Afib -: PAD -: hysterectomy -: knee surgery -: right lower leg vein ablasion - Family History Father -: Heart disease Mother -: Heart disease - Social History Smoking Status: Former smoker Counseled patient to stop smoking for: more than 10 minutes Smoking therapy provided: Yes Patient receptive to therapy: No Alcohol use: No CD- Drugs: No Caffeine use: Yes Place of Residence: Home Review of Systems 10-point ROS is otherwise unremarkable Physical Examination - Physical Exam General: Alert, In no apparent distress Respiratory: Clear to auscultation bilaterally, Normal air movement Cardiovascular: Normal S1 S2, Irregular heart rate/rhythm Gastrointestinal: Normal bowel sounds, No tenderness Musculoskeletal: No tenderness Integumentary: No rashes Neurological: Normal speech, Normal strength at 5/5 x4 extr, Normal tone Lymphatics: No axilla or inguinal lymphadenopathy - Studies Laboratory Data (last 24 hrs) 09/19/18 15:20: PT 15.5 H, INR 1.33 09/19/18 15:20: WBC 12.2 H, Hgb 15.1 H, Hct 47.1 H, Plt Count 251 09/19/18 15:20: Sodium 141, Potassium 4.1, BUN 34 H, Creatinine 1.42 H, Glucose 95, Magnesium 2.4, Total Bilirubin 1.1 H, AST 92 H, ALT 102 H, Alkaline Phosphatase 153 H Assessment and Plan - Problems (Diagnosis) (1) Atrial fibrillation with rapid ventricular response Onset Date: 10/08/14 Current Visit: No Status: Acute Plan: pt with Afib with RVR with HR in 140-160 most likely 2.2 to Dehydration -Lopressor x 2 given with 1x digxoin. HR down to 30-40 -Currently not taking any medication as home. Will hold on BB due to Low HR after medication in ER. Will start on baby ASA for now -Monitor on cardiac Tele -Will repeat Cardiac ECHO and Cardiology consult. (2) Hypothyroid Current Visit: No Status: Chronic Plan: TSH is 11.04 -Will start on medication Qualifiers: Hypothyroidism type: acquired Qualified Code(s): E03.9 - Hypothyroidism, unspecified (3) BELTRAN (acute kidney injury) Current Visit: Yes Status: Acute Plan: BELTRAN most likely 2.2 to Dehydration -IV fluids at ns 100ml/hr -Will monitor closely (4) LFT elevation Current Visit: Yes Status: Acute Plan: Elevated LFt's Most likely 2.2 to Dehydration -IV fluids for now -If no change will get US of the abdomen -No c/o Offer from patient (5) Venous hypertension of both lower extremities Current Visit: Yes Status: Chronic Plan: Pt with BL Venour HTN ulcer -Seen today at the [facility] by Dr Parsons. -Continue with Wound care Discharge Plan: Home Plan to discharge in: 48 Hours - Advance Directives Does patient have a Living Will: No Does patient have a Durable POA for Healthcare: No - Code Status/Comfort Care Code Status Assessed: Yes Critical Care: No
[2018-09-19] MEDS ORDERED: NA CHLORIDE 0.9% 1,000 ML IV SCH ×2 (17:11→19:00)
[2018-09-19 17:59] VITALS: BMI 41.1
[2018-09-19 22:54] LABS: Urine Appearance CLOUDY; Urine Bilirubin NEGATIVE (NEG); Urine Blood NEGATIVE (NEG); Urine Color YELLOW; Urine Glucose NEGATIVE (NEG); Urine Protein NEGATIVE (NEG); Urine Specific Gravity 1.025 (1.005-1.030); Urine Urobilinogen 0.2 mg/dL (0.2-1.0)
[2018-09-19 22:55] LABS: Urine Microscopic Reflex ORDER UMIC
[2018-09-19 23:38] LABS: Urine Bacteria <20 /HPF (<20); Urine Culture Reflex Order NOT NEEDED; Urine RBC NONE SEEN /HPF (NONE SEEN)
[2018-09-20 06:07] LABS: Absolute Lymphocytes (CBC) 1.6 K/uL (0.7-4.9); Basophils % 0.8 % (0-1.3); Hematocrit 40.8 % (36.0-45.0); Lymphocytes % 14.5 % (15.3-44.8); MPV 10.7 fL (7.6-11.3); RBC Red Blood Cell Count 4.42 M/uL (3.86-4.86)
[2018-09-20 06:26] VITALS: O2SAT 90
[2018-09-20] MEDS ORDERED: LEVOTHYROXINE SOD 0.05 MG TABLET PO SCH (06:30)
[2018-09-20 06:34] LABS: Bilirubin Total 0.8 mg/dL (0.2-1.0); Potassium 4.5 mmol/L (3.5-5.1); Protein, Total 6.2 g/dL (6.4-8.2)
--- NOTE | 2018-09-20 07:11 | EKG ---
Test Date: 2018-09-19 Test Time: 16:51:20 Child Development Director: ALEX MEASUREMENT RESULTS: Intervals: Rate: 56 CO: 156 QRSD: 172 QT: 484 QTc: 467 [place]: P: 39 CO: 156 QRS: -8 T: 234 INTERPRETIVE STATEMENTS: Sinus bradycardia Right bundle branch block T wave abnormality, consider inferolateral ischemia Abnormal ECG Compared to ECG 09/19/2018 15:06:04 Wide-QRS tachycardia no longer present T-wave abnormality still present Possible ischemia still present Electronically Signed On 09-20-18 07:10:55 CDT by Murray Lovelace
--- NOTE | 2018-09-20 07:12 | EKG ---
Test Date: 2018-09-19 Test Time: 15:06:04 Court Reporter: JENNA MEASUREMENT RESULTS: Intervals: Rate: 160 MA: QRSD: 130 QT: 328 QTc: 535 [place]: P: MA: QRS: 249 T: 84 INTERPRETIVE STATEMENTS: Atrial flutter with 2:1 AV block Right bundle branch block T wave abnormality, consider lateral ischemia Abnormal ECG Compared to ECG 10/10/2014 09:46:24 Atrial flutter with 2:1 AV block is now present Sinus bradycardia no longer present Electronically Signed On 09-20-18 07:12:37 CDT by Murray Lovelace
[2018-09-20] MEDS ORDERED: ASPIRIN 81 MG CHEWABLE TABLET PO SCH (09:00)
[2018-09-20] MEDS ORDERED: METOPROLOL TAR 50 MG TAB PO SCH (09:00)
[2018-09-20] MEDS ORDERED: ENOXAPARIN 100 MG/ML SYR SQ SCH (09:00)
--- NOTE | 2018-09-20 10:48 | CON ---
History Of Present Illness: Mrs. Contreras came to the hospital with atrial flutter. The actual chief complaint did not seem to be related to the heart, but her heart rate was 150. She was in atrial flutter with 2:1 block. I think she had some weakness and she was [facility] by Dr. Stephen. The patient has a history of atrial fib and flutter in the past. In 2014, we started her on the usual medications to control it. She stopped that, in the meantime, has not come to any followup. She was on an anticoagulant and Betapace and stopped both. The only medicine she reports taking now is tramadol. She is in the [facility] because of the wound on her right foot. She has venous stasis ulcers on her feet that have poor healing. She has no allergies. Social History: Denies tobacco use. Denies any history of diabetes, coronary heart disease, heart failure. She does remember that she had atrial fibrillation. Physical Examination: General: She is 5 feet 4 inches, 239 pounds. Morbidly obese. HEENT: Normal. Lungs: Clear. Heart: Regular rate and rhythm going about 60 beats per minute now. Abdomen: Soft. Extremities: Reveal the wound, venous stasis changes on both sides. Distal pulses are palpable. Impression: The patient should be on anticoagulation and metoprolol. I think with her history of such poor compliance, I would initiate outpatient anticoagulation only if she reports to the doctor's office for followup visit and understands the importance of it. I think at this point, she would be very likely to misuse the drugs that we prescribe that she did in the past. ARMANDO Voice ID: [id number] Report ID: [id number] JULY
--- NOTE | 2018-09-20 11:59 | ECHO ---
HEIGHT: 5 ft 4 in WEIGHT: 239 lb 15.923 oz DATE OF STUDY: 09/20/[address]: Felicia Lawrence MD 2-DIMENSIONAL: YES M.MODE: YES DOPPLER: YES COLOR FLOW: YES TDS: YES PORTABLE: NO DEFINITY: NO BUBBLE STUDY: NO DIAGNOSIS: ATRIAL FIBRILLATION WITH RAPID VENTRICULAR RESPONSE CARDIAC HISTORY: CATHERIZATION: NO SURGERY: NO PROSTHETIC VALVE: NO PACEMAKER: NO MEASUREMENTS (cm) DIASTOLIC (NORMALS) SYSTOLIC (NORMALS) IVSd 1.1 (0.6-1.2) LA Diam 4.1 (1.9-4.0) LVEF 66% LVIDd 4.5 (3.5-5.7) LVIDs 2.9 (2.0-3.5) %FS 36% LVPWd 1.2 (0.6-1.2) Ao Diam 2.5 (2.0-3.7) 2 DIMENSIONAL ASSESSMENT: RIGHT ATRIUM: NORMAL LEFT ATRIUM: DILATED RIGHT VENTRICLE: NORMAL LEFT VENTRICLE: NORMAL TRICUSPID VALVE: NORMAL MITRAL VALVE: NORMAL PULMONIC VALVE: NORMAL AORTIC VALVE: MILD SCLEROSIS PERICARDIAL EFFUSION: NONE AORTIC ROOT: NORMAL LEFT VENTRICULAR WALL MOTION: NORMAL. DOPPLER/COLOR FLOW: NO AORTIC STENOSIS OR AORTIC REGURGITATION. MILD TRICUSPID REGURGITATION, NORMAL RIGHT VENTRICULAR SYSTOLIC PRESSURE. MILD MITRAL REGURGITATION. COMMENTS: NORMAL LEFT VENTRICULAR EJECTION FRACTION. DILATED LEFT ATRIUM. AORTIC SCLEROSIS WITH NO AORTIC STENOSIS OR AORTIC REGURGITATION. MILD TRICUSPID REGURGITATION. MILD MITRAL REGURGITATION. TECHNOLOGIST: NICK VELAZQUEZ
[2018-09-20 12:26] VITALS: BP 153/65; TEMP 98.3
--- NOTE | 2018-09-20 15:19 | P.SSS ---
Patient History Date of Service: 09/20/18 Primary Care Provider: Dr Baum Reason for admission: Chest palpation History of Present Illness: 73 y/o F with H/o Afib, PVD and Hypothyroidism who presented to the ED from [facility] after being found to have HR of 160. 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 She is diagnosed with Afib and hypothyroidism for a while but does not take any medication. Denied any Fever, chills, SOB or Chest pain at this time. In the Er she was Given lopressor 2.5 mg x 2, Metoprolol 50mg PO x 1 and Digxoin x1 which dropped her BP and HR down to 30. Pt still remained asymptomatic. Pt was however admitted to the hospital for Afib with RVR Allergies No Known Drug Allergies Allergy (Verified 09/19/18 18:01) Unknown Home Medications: traMADol HCL [Ultram*] 50 mg PO Q6H PRN 09/19/18 Aspirin Chewable [Aspirin Chewable*] 81 mg PO DAILY #30 tab.chew 09/20/18 Metoprolol Tartrate [Lopressor*] 50 mg PO BID #60 tab 09/20/18 - Past Medical/Surgical History Has patient received pneumonia vaccine in the past: No Diabetic: No -: Chronic Bronchitis -: hypothyroidism -: Afib -: PAD -: hysterectomy -: knee surgery -: right lower leg vein ablasion - Family History Father -: Heart disease Mother -: Heart disease - Social History Smoking Status: Former smoker Alcohol use: No CD- Drugs: No Caffeine use: Yes Place of Residence: Home Review of Systems 10-point ROS is otherwise unremarkable Physical Examination - Vital Signs Temperature: 98.3 F Blood Pressure: 153/65 Pulse: 60 Respirations: 18 Pulse Ox (%): 96 - Physical Exam General: Alert, In no apparent distress HEENT: Atraumatic, PERRLA, Mucous membr. moist/pink, EOMI, Sclerae nonicteric Neck: Supple, 2+ carotid pulse no bruit, No LAD, Without JVD or thyroid abnormality Respiratory: Clear to auscultation bilaterally, Normal air movement Cardiovascular: Regular rate/rhythm, Normal S1 S2 Gastrointestinal: Normal bowel sounds, No tenderness Musculoskeletal: No tenderness Integumentary: No rashes Neurological: Normal gait, Normal speech, Normal strength at 5/5 x4 extr, Normal tone, Normal affect Lymphatics: No axilla or inguinal lymphadenopathy - Studies Laboratory Data (last 24 hrs) 09/19/18 15:20: PT 15.5 H, INR 1.33 09/19/18 15:20: WBC 12.2 H, Hgb 15.1 H, Hct 47.1 H, Plt Count 251 09/19/18 15:20: Sodium 141, Potassium 4.1, BUN 34 H, Creatinine 1.42 H, Glucose 95, Magnesium 2.4, Total Bilirubin 1.1 H, AST 92 H, ALT 102 H, Alkaline Phosphatase 153 H - Diagnosis (Problem(s)) (1) Atrial fibrillation with rapid ventricular response Onset Date: 10/08/14 Status: Acute Plan: pt with Afib with RVR with HR in 140-160 most likely 2.2 to Dehydration -Lopressor x 2 given with 1x digxoin in the ER. HR down to 30-40 after than. -Currently not taking any medication as home. -Cardiology cosnulted. Reccs metoprolol 50mg BID and Anticoagulation but only after she f/u with Cardiology in the clinic -Pt advise regarding the reccs and DC home on BB and ASA -ECHO wnl (2) Hypothyroid Status: Chronic Plan: TSH is 11.04 -Started on levthyroxine at dc. Pt refused to take Qualifiers: Hypothyroidism type: acquired Qualified Code(s): E03.9 - Hypothyroidism, unspecified (3) BELTRAN (acute kidney injury) Status: Resolved Plan: BELTRAN most likely 2.2 to Dehydration -resolved (4) LFT elevation Status: Resolved Plan: Resolved (5) Venous hypertension of both lower extremities Status: Chronic Plan: Will return back to [facility] - Disposition Disposition: ROUTINE DISCHARGE Condition: GOOD Diet: Regular Activity: Ad tristian
== END 2018-09-20 13:00 | disposition home or self-care (01) ==
LOC: ER 14:49 → ERHOLD 16:05 → 2ND 17:17
PROVIDERS: ADMIT Family Medicine; ATTEND Family Medicine
DX: I48.2 Chronic atrial fibrillation (principal); E03.9 Hypothyroidism, unspecified; N17.9 Acute kidney failure, unspecified; I87.313 Chronic venous hypertension (idiopathic) with ulcer of bilateral lower extremity; L97.529 Non-pressure chronic ulcer of other part of left foot with unspecified severity; L97.519 Non-pressure chronic ulcer of other part of right foot with unspecified severity; R79.89 Other specified abnormal findings of blood chemistry; I73.9 Peripheral vascular disease, unspecified; I35.8 Other nonrheumatic aortic valve disorders; I34.0 Nonrheumatic mitral (valve) insufficiency; I07.1 Rheumatic tricuspid insufficiency; I45.10 Unspecified right bundle-branch block; R94.31 Abnormal electrocardiogram [ECG] [EKG]; E66.01 Morbid (severe) obesity due to excess calories; Z68.41 Body mass index [BMI] 40.0-44.9, adult; Z87.891 Personal history of nicotine dependence
CPT/HCPCS: 96361; 93005 ×2; 93306; 87088; 85025 ×2; 87086; 80048; 36415; 83735; 85610; 80076; 84443; 84484; 84439; 80053; 83880; 71045; 96375; 96372; 96374; 99291; J1160; J3475; J1650 ×3; J0696; J7030 ×3; G0378 ×2; 71275; 81003; 81015; 82550; 82553; 84145; 87040; 97163; 99213; 99285; J1940; Q9967

== ENCOUNTER 2018-09-20 23:05 | Observation (INO) | payer OTHER ==
[2018-09-20] MEDS ORDERED: FUROSEMIDE 20 MG/ 2ML VIAL ONE (23:58)
[2018-09-20] MEDS ORDERED: LEVALBUTEROL 1.25 MG/3 ML NEB ONE (23:58)
[2018-09-21 00:15] LABS: Absolute Lymphocytes (CBC) 1.4 K/uL (0.7-4.9); Basophils % 0.4 % (0-1.3); Hematocrit 43.5 % (36.0-45.0); Lymphocytes % 9.5 % (15.3-44.8); MPV 10.4 fL (7.6-11.3); RBC Red Blood Cell Count 4.74 M/uL (3.86-4.86)
[2018-09-21 00:33] LABS: Magnesium 2.2 mg/dL (1.8-2.4); Potassium 4.2 mmol/L (3.5-5.1); Troponin (Emerg Dept Use Only) 0.05 ng/mL (0.0-0.045)
--- NOTE | 2018-09-21 01:42 | EDPHYS ---
Physician Documentation [facility] Name: Renato Contreras Age: 73 yrs Sex: Female : 1945 Arrival Date: 09/20/2018 Time: 23:12 Bed 13 Private MD: Rayshawn Baum E ED Physician Carlton Benítez HPI: 09/21 01:28 This 73 yrs old Female presents to ER via Wheelchair with complaints of afib, rn General Weakness. 01:28 The patient has shortness of breath with light activity. Onset: The symptoms/episode rn began/occurred yesterday. Duration: The symptoms are continuous. The patient's shortness of breath is aggravated by exertion, light activity. Severity of symptoms: At their worst the symptoms were moderate in the emergency department the symptoms are unchanged. The patient has experienced a previous episode. Reports sob, generalized weakness, dyspnea on exertion, no fever, + cough that she didn't have yesterday. States doesn't have energy and cannot move around her house without pausing to breathe. Normally not on oxygen at home, currently requiring oxygen.. Historical: - Allergies: 09/20 23:35 No Known Drug Allergies; ea - Home Meds: 23:35 tramadol 50 mg Oral tab 1 tab every 6 hrs PRN [Active]; ea - PMHx: 23:35 Atrial Fib; PAD; ea - PSHx: 23:35 bypass; Hysterectomy; Knee surgery; endovasular ablation; ea - Immunization history:: Adult Immunizations up to date. - Social history:: Smoking status: Patient/guardian denies using tobacco. - Ebola Screening: : No symptoms or risks identified at this time. - Family history:: not pertinent. - Hospitalizations: : No recent hospitalization is reported. ROS: 09/21 01:28 Constitutional: Negative for fever, chills, and weight loss, Eyes: Negative for injury, rn pain, redness, and discharge, Neck: Negative for injury, pain, and swelling, Cardiovascular: Negative for palpitations Respiratory: Negative for wheezing, and pleuritic chest pain, Abdomen/GI: Negative for abdominal pain, nausea, vomiting, diarrhea, and constipation, MS/Extremity: Negative for injury and deformity, Skin: Negative for injury, rash, and discoloration, Neuro: Negative for headache, numbness, tingling, and seizure. Exam: 01:28 Constitutional: Overweight female, sitting upright with moderate tachypnea, speaking 4 rn word sentences. Head/Face: Normocephalic, atraumatic. Eyes: Pupils equal round and reactive to light Cardiovascular: Regular, no murmur Respiratory: Diminished at bases with crackles, no wheezing, moderate tachypnea Abdomen/GI: soft, non-tender MS/ Extremity: Pulses equal, no cyanosis. Neurovascular intact. Full, normal range of motion. Equal circumference. Neuro: Awake and alert, GCS 15, oriented to person, place, time, and situation. Cranial nerves II-XII grossly intact. Motor strength 5/5 in all extremities. Sensory grossly intact. Vital Signs: 09/20 23:33 BP 154 / 101; Pulse 68; Resp 24; Temp 98.6; Pulse Ox 88% on R/A; Weight 108.86 kg; ea Height 5 ft. 4 in. (162.56 cm); 09/21 00:40 BP 178 / 88; Pulse 60; Resp 20; Pulse Ox 99% on 2 lpm NC; ea 01:55 BP 180 / 80; Pulse 62; Resp 18; Pulse Ox 98% on 2 lpm NC; ea 03:00 BP 153 / 64; Pulse 63; Resp 18; Pulse Ox 95% on R/A; ea 09/20 23:33 Body Mass Index 41.20 (108.86 kg, 162.56 cm) ea 09/20 23:33 pt placed on O2 at 2 L ea MDM: 23:26 Patient medically screened. rn 09/21 01:39 Differential diagnosis: CHF exacerbation, Chronic Obstructive Pulmonary Disease rn Myocardial Infarction pneumonia, Pneumothorax pulmonary edema, Pulmonary Embolism. Data reviewed: vital signs, nurses notes, lab test result(s), EKG, radiologic studies, plain films, and as a result, I will admit patient. Counseling: I had a detailed discussion with the patient and/or guardian regarding: the historical points, exam findings, and any diagnostic results supporting the discharge/admit diagnosis, lab results, radiology results, the need for further work-up and treatment in the hospital. Admission orders: after a detailed discussion of the patient's condition and case, the admit orders are written by me. ED course: Requiring oxygen, still tachypneic, elevated trop and BNP, admitted to [facility]. . 09/20 23:34 Order name: BMP; Complete Time: 01:06 rn 09/20 23:34 Order name: CBC with Diff; Complete Time: 01:06 rn 09/20 23:34 Order name: Magnesium; Complete Time: 01:06 rn 09/20 23:34 Order name: NT PRO-BNP; Complete Time: 01:06 rn 09/20 23:34 Order name: Troponin (emerg Dept Use Only); Complete Time: 01:06 rn 09/21 02:02 Order name: Procalcitonin rn 09/20 23:34 Order name: XRAY CXR (1 view) rn 09/20 23:34 Order name: EKG; Complete Time: 23:36 rn 09/20 23:34 Order name: Cardiac monitoring; Complete Time: 23:56 rn 09/20 23:34 Order name: EKG - Nurse/Tech; Complete Time: 23:56 rn 09/20 23:34 Order name: IV Saline Lock; Complete Time: 00:08 rn 09/21 01:33 Order name: CT Chest For PE Angio rn 09/20 23:34 Order name: Labs collected and sent; Complete Time: 00:08 rn 09/20 23:34 Order name: O2 Per Protocol; Complete Time: 23:56 rn 09/20 23:34 Order name: O2 Sat Monitoring; Complete Time: 23:56 rn Administered Medications: 00:20 Drug: Xopenex 1.25 mg Route: Inhalation; ea 00:20 Drug: Lasix 20 mg Route: IVP; Site: right hand; ea 03:24 Follow up: Response: No adverse reaction ea Disposition: 09/21/18 01:40 Hospitalization ordered by Minor Finch for Inpatient Admission. Preliminary diagnosis are Dyspnea, unspecified, Unspecified diastolic (congestive) heart failure, Hypoxemia. - Bed requested for Telemetry/MedSurg (Inpatient). - Status is Inpatient Admission. ea - Condition is Stable. - Problem is new. - Symptoms have improved. UTI on Admission? No Signatures: Dispatcher [employer] EDCydney Braxton RN Carlton Ortiz MD MD rn Antunez, Elena, RN RN ea Corrections: (The following items were deleted from the chart) 02:53 01:40 Hospitalization Ordered by Minor Finch DO for Inpatient Admission. Preliminary mw diagnosis is Dyspnea, unspecified; Unspecified diastolic (congestive) heart failure; Hypoxemia. Bed requested for Telemetry/MedSurg (Inpatient). Status is Inpatient Admission. Condition is Stable. Problem is new. Symptoms have improved. UTI on Admission? No. rn 03:42 02:53 09/21/2018 01:40 Hospitalization Ordered by Minor Finch DO for Inpatient ea Admission. Preliminary diagnosis is Dyspnea, unspecified; Unspecified diastolic (congestive) heart failure; Hypoxemia. Bed requested for Telemetry/MedSurg (Inpatient). Status is Inpatient Admission. Condition is Stable. Problem is new. Symptoms have improved. UTI on Admission? No. mw
--- NOTE | 2018-09-21 01:42 | ER ---
Nurse's Notes [facility] Name: Renato Contreras Age: 73 yrs Sex: Female : 1945 Arrival Date: 09/20/2018 Time: 23:12 Bed 13 Private MD: Rayshawn Baum E Diagnosis: Dyspnea, unspecified;Unspecified diastolic (congestive) heart failure;Hypoxemia Presentation: 09/20 23:32 Presenting complaint: Patient states: Reports " I feel shitty" Pt unable to explain ea symptoms. Denies chest pain. States she feels short of breath. Transition of care: patient was not received from another setting of care. Onset of symptoms was September 20, 2018. Risk Assessment: Do you want to hurt yourself or someone else? Patient reports no desire to harm self or others. Initial Sepsis Screen: Does the patient meet any 2 criteria? No. Patient's initial sepsis screen is negative. Does the patient have a suspected source of infection? No. Patient's initial sepsis screen is negative. Care prior to arrival: None. 23:32 Method Of Arrival: Wheelchair ea 23:32 Acuity: BRODY 3 ea Historical: - Allergies: 23:35 No Known Drug Allergies; ea - Home Meds: 23:35 tramadol 50 mg Oral tab 1 tab every 6 hrs PRN [Active]; ea - PMHx: 23:35 Atrial Fib; PAD; ea - PSHx: 23:35 bypass; Hysterectomy; Knee surgery; endovasular ablation; ea - Immunization history:: Adult Immunizations up to date. - Social history:: Smoking status: Patient/guardian denies using tobacco. - Ebola Screening: : No symptoms or risks identified at this time. - Family history:: not pertinent. - Hospitalizations: : No recent hospitalization is reported. Screenin:35 Abuse screen: Denies threats or abuse. Nutritional screening: No deficits noted. ea Tuberculosis screening: No symptoms or risk factors identified. Fall Risk None identified. Assessment: 23:40 General: Appears uncomfortable, Behavior is anxious. Pain: Denies pain. Neuro: Level of ea Consciousness is awake, alert, obeys commands, Oriented to person, place, time, situation. Cardiovascular: Patient's skin is warm and dry. Respiratory: Airway is patent Respiratory effort is labored, Respiratory pattern is tachypnea. GI: No signs and/or symptoms were reported involving the gastrointestinal system. Derm: Skin is dry, Skin is pale, Skin temperature is warm. 09/21 00:30 Reassessment: Patient and/or family updated on plan of care and expected duration. Pain ea level reassessed. Patient is alert, oriented x 3, equal unlabored respirations, skin warm/dry/pink. 01:20 Reassessment: Patient and/or family updated on plan of care and expected duration. Pain ea level reassessed. Patient is alert, oriented x 3, equal unlabored respirations, skin warm/dry/pink. Remains on O2 at 2 L per nasal cannula. Pt tolerating well. Patient states feeling better. 02:20 Reassessment: Patient and/or family updated on plan of care and expected duration. Pain ea level reassessed. Patient is alert, oriented x 3, equal unlabored respirations, skin warm/dry/pink. 03:16 Reassessment: Report given to Tammy SOARES on second floor. ea 03:25 Reassessment: Patient and/or family updated on plan of care and expected duration. Pain ea level reassessed. Pt resting with eyes closed, respirations even and unlabored. Awaiting on CT results. 03:38 Reassessment: Patient and/or family updated on plan of care and expected duration. Pain ea level reassessed. Patient is alert, oriented x 3, equal unlabored respirations, skin warm/dry/pink. Pt admitted to second floor, pt taken via stretcher per tech. Pt tolerating well. No s/s of pain or discomfort noted at this time. Vital Signs: 09/20 23:33 BP 154 / 101; Pulse 68; Resp 24; Temp 98.6; Pulse Ox 88% on R/A; Weight 108.86 kg; ea Height 5 ft. 4 in. (162.56 cm); 09/21 00:40 BP 178 / 88; Pulse 60; Resp 20; Pulse Ox 99% on 2 lpm NC; ea 01:55 BP 180 / 80; Pulse 62; Resp 18; Pulse Ox 98% on 2 lpm NC; ea 03:00 BP 153 / 64; Pulse 63; Resp 18; Pulse Ox 95% on R/A; ea 09/20 23:33 Body Mass Index 41.20 (108.86 kg, 162.56 cm) ea 09/20 23:33 pt placed on O2 at 2 L ea ED Course: 23:12 Patient arrived in ED. am2 23:13 Rayshawn Baum MD is Private Physician. am2 23:26 Carlton Benítez MD is Attending Physician. rn 23:32 Devorah Bunn RN is Primary Nurse. ea 23:33 Triage completed. ea 23:36 Patient has correct armband on for positive identification. Bed in low position. Call ea light in reach. Side rails up X2. 23:36 Arm band placed on right wrist. Patient placed in an exam room, on a stretcher, on ea pulse oximetry. 09/21 00:05 Inserted saline lock: 24 gauge in right wrist, using aseptic technique. Blood collected.jp3 00:05 Initial lab(s) drawn, by me, sent to lab. jp3 00:54 XRAY CXR (1 view) In Process Unspecified. EDMS 01:21 No provider procedures requiring assistance completed. ea 01:40 Minor Mullins DO is Hospitalizing Provider. rn 02:10 Missed attempt(s): 22 gauge in left antecubital area. Bleeding controlled, band aid fc applied, catheter tip intact. 02:24 Inserted 18 gauge 10 cm midline to left upper basilic vein on first attempt. Line with fc good blood return and flushes well. 03:24 Patient admitted, IV remains in place. ea Administered Medications: 00:20 Drug: Xopenex 1.25 mg Route: Inhalation; ea 00:20 Drug: Lasix 20 mg Route: IVP; Site: right hand; ea 03:24 Follow up: Response: No adverse reaction ea Outcome: 01:40 Decision to Hospitalize by Provider. rn 03:24 Condition: stable ea 03:24 Instructed on the need for admit. 03:41 Admitted to Med/surg accompanied by tech, with chart, Report called to Tammy SOARES ea 03:42 Patient left the ED. ea Signatures: Dispatcher [employer] EDMS Augusta Gregory RN RN fc Nieto, Roman, MD MD rn Moreno, Amanda am2 Devorah Bunn RN RN ea Pisarski, Jacob jp3
--- NOTE | 2018-09-21 02:33 | P.HP ---
Certification for Inpatient Patient admitted to: Observation With expected LOS: <2 Midnights Patient will require the following post-hospital care: Home Health Services Practitioner: I am a practitioner with admitting privileges, knowledge of patient current condition, hospital course, and medical plan of care. Services: Services provided to patient in accordance with Admission requirements found in Title 42 Section 412.3 of the Code of Federal Regulations Patient History Date of Service: 09/21/18 Primary Care Provider: Dr. Baum; Cardiology-Dr. Lovelace Reason for admission: Shortness of breath History of Present Illness: 73-year-old female presented to the emergency room with shortness of breath. Patient actually seen in the hospital and discharged yesterday for atrial flutter. Patient was seen by Cardiology at that time. Patient has history of atrial fibrillation with poor compliance with medication. Patient was started on metoprolol and given digoxin. She converted to normal sinus rhythm during her stay. Patient was sent home with metoprolol. Anti coagulation therapy was recommended but due to her noncompliance this was held at discharge until she had a follow up with cardiology to confirm compliance with follow up. Echocardiogram shows ejection fraction of 66%. Patient also has noncompliance with thyroid medication. This was also restarted at discharge. Patient reported that she would not take medication. When the patient went home she continued to have increasing shortness of breath. This started at night and then slowly worsened. She had a cough that was clear. She denied any chest pain, fever, chills. Shortness of breath was worse with exertion. She also reported some edema to the lower extremities. In the ER patient was in normal sinus rhythm with x-ray shows pattern of pulmonary edema. Patient was hypoxic in the emergency room with a room-air saturations of 88%. White count 14.3, hemoglobin 14. Sodium 142, potassium 4.2. BUN of 29, creatinine was 0.94 with a GFR 58. Glucose 128. Troponin elevated at 0.05. Patient was given IV Lasix in the ER. CT chest to rule out pulmonary embolism pending at this time. Patient will be admitted for further evaluation and treatment. When I saw the patient ER, mild shortness of breath noted. Patient appeared stable with nasal cannula. Allergies No Known Drug Allergies Allergy (Verified 09/19/18 18:01) Unknown Home medications list reviewed: Yes Home Medications: traMADol HCL [Ultram*] 50 mg PO Q6H PRN 09/19/18 Aspirin Chewable [Aspirin Chewable*] 81 mg PO DAILY #30 tab.chew 09/20/18 Metoprolol Tartrate [Lopressor*] 50 mg PO BID #60 tab 09/20/18 - Past Medical/Surgical History Diabetic: No -: Hypothyroidism -: Atrial fibrillation/atrial flutter -: History of chronic anti coagulation therapy but held due to noncompliance -: PAD -: Non compliance with follow up and medication -: Venous insufficiency -: Hysterectomy -: Knee surgery -: right lower leg vein ablasion Psychosocial/ Personal History: Patient lives at home. She is a . - Family History Father -: Heart disease Mother -: Heart disease - Social History Smoking Status: Never smoker Alcohol use: Yes CD- Drugs: No Caffeine use: Yes Place of Residence: Home Review of Systems General: Weakness, As per HPI Eyes: Unremarkable ENT: Unremarkable Respiratory: Cough, Shortness of Breath, SOB with Excertion, As per HPI Cardiovascular: Edema, As per HPI Gastrointestinal: Unremarkable Genitourinary: Unremarkable Musculoskeletal: Pedal edema, As per HPI Integumentary: Unremarkable Neurological: Unremarkable Lymphatics: Unremarkable Physical Examination - Physical Exam General: Alert, In no apparent distress, Oriented x3, Cooperative HEENT: Atraumatic, Normocephalic, PERRLA, Mucous membr. moist/pink Neck: Supple, No Thyromegaly Respiratory: Crackles/rales (Bilateral to the bases) Cardiovascular: Normal pulses, Regular rate/rhythm Gastrointestinal: Normal bowel sounds, Soft and benign, Non-distended, No tenderness, No masses, No rebound, No guarding Musculoskeletal: No erythema, No tenderness, No warmth Integumentary: Tenderness/swelling (1 to 2+ pitting edema to the lower extremities bilateral) Neurological: Normal speech, Normal strength at 5/5 x4 extr, Normal tone, Normal affect - Studies Laboratory Data (last 24 hrs) 09/20/18 00:05: WBC 14.3 H D, Hgb 14.3, Hct 43.5, Plt Count 257 09/20/18 00:05: Sodium 142, Potassium 4.2, BUN 29 H, Creatinine 0.94, Glucose 125 H, Magnesium 2.2 Assessment and Plan - Plan Impression: Shortness of breath, hypoxia, edema to the lower extremities likely secondary to acute on chronic diastolic CHF Chronic atrial fibrillation and history of atrial flutter not on chronic anti coagulation therapy Hypothyroidism Poor compliance with follow up and medication Plan: Shortness of breath, hypoxia, edema to the lower extremities likely secondary to acute on chronic diastolic CHF: Patient will be admitted for further evaluation and treatment. Patient given IV Lasix in the emergency room. Will continue with IV Lasix 20 mg twice daily. Will teach on 1500 cc per day fluid restriction and low-salt diet. Echocardiogram shows ejection fraction of 66%. Will monitor troponins closely. Will monitor on telemetry as well. Will consult cardiology for further recommendation. Will try to wean off oxygen. Maintain sats above 90%. Patient may require home oxygen at discharge. Will obtain CT scan of the chest to rule out pulmonary embolism. Await further recommendations from cardiology. Likely discharge in the next 24 hr with clinical improvement with the possibility of home health arranged at discharge with home oxygen. Chronic atrial fibrillation and history of atrial flutter not on chronic anti coagulation therapy: Patient now in normal sinus rhythm. Will continue metoprolol 50 mg 1 pill twice daily. Will provide Lovenox at 1 milligram/ kilogram subcu twice daily. Patient was to follow up with cardiology as an outpatient and consider starting chronic anti coagulation therapy. Anti coagulation therapy was not considered at discharge yesterday due to poor compliance with follow up and medication. Hypothyroidism: Restart levothyroxine 50 mcg daily. Patient with poor compliance with medication and follow up. Patient reported that she does not plan to take medication. Will educate on the importance of compliance with medication and follow up. Poor compliance with follow up and medication: Continue to address the importance of compliance with medication and follow up. Discharge Plan: Home Plan to discharge in: 24 Hours - Advance Directives Does patient have a Living Will: No Does patient have a Durable POA for Healthcare: No - Code Status/Comfort Care Code Status Assessed: Yes (Patient is full code) Time Spent Managing Pts Care (In Minutes): 55
[2018-09-21] MEDS ORDERED: ACETAMINOPHEN 500 MG TAB PO PRN (03:34)
[2018-09-21 03:50] VITALS: BMI 42.8
[2018-09-21 04:35] LABS: Urine Appearance CLEAR; Urine Bilirubin NEGATIVE (NEG); Urine Blood NEGATIVE (NEG); Urine Color YELLOW; Urine Glucose NEGATIVE (NEG); Urine Protein NEGATIVE (NEG); Urine Specific Gravity 1.015 (1.005-1.030); Urine Urobilinogen 0.2 mg/dL (0.2-1.0)
[2018-09-21 04:37] LABS: Urine Microscopic Reflex ORDER UMIC
[2018-09-21] MEDS ORDERED: Enoxaparin 120 MG/0.8 ML SYR SQ SCH (04:38)
[2018-09-21 05:10] LABS: Urine Bacteria <20 /HPF (<20); Urine Culture Reflex Order REFLEXED; Urine RBC NONE SEEN /HPF (NONE SEEN)
--- NOTE | 2018-09-21 05:29 | EKG ---
Test Date: 2018-09-20 Test Time: 23:40:18 Back Tender Paper Machine: SERGIO MEASUREMENT RESULTS: Intervals: Rate: 63 CT: 104 QRSD: 172 QT: 498 QTc: 509 [place]: P: 23 CT: 104 QRS: 137 T: 96 INTERPRETIVE STATEMENTS: Sinus rhythm with short CT Right bundle branch block Abnormal ECG Compared to ECG 09/19/2018 16:51:[address] interval now present Sinus bradycardia no longer present T-wave abnormality no longer present Possible ischemia no longer present Electronically Signed On 09-21-18 05:29:16 CDT by Murray Lovelace
[2018-09-21] MEDS ORDERED: LEVOTHYROXINE SOD 0.05 MG TABLET PO SCH (06:30)
[2018-09-21 07:53] LABS: CKMB Creatine Kinase MB 2.2 ng/mL (0.3-3.6); Troponin I 0.13 ng/mL (0.0-0.045)
--- NOTE | 2018-09-21 08:32 | RAD REPORT ---
EXAM DESCRIPTION: Denise Single View09/21/2018 12:23 am CLINICAL HISTORY: Shortness of breath COMPARISON: September 19, 2018 FINDINGS: Small bilateral pleural effusions [id number] bilateral pulmonary opacities. Cardiomegaly IMPRESSION: CHF
[2018-09-21] MEDS ORDERED: ASPIRIN EC 81 MG TAB PO SCH (09:00)
[2018-09-21] MEDS ORDERED: FUROSEMIDE 20 MG/ 2ML VIAL IV SCH (09:00)
[2018-09-21] MEDS ORDERED: METOPROLOL TAR 50 MG TAB PO SCH (09:00)
--- NOTE | 2018-09-21 09:45 | RAD REPORT ---
EXAM DESCRIPTION: CT - Chest For Pe Angio - 09/21/2018 6:24 am CLINICAL HISTORY: 73-year-old female with dyspnea. TECHNIQUE: Following the administration of intravenous contrast, multiple high-resolution axial imag es of the chest were performed followed by sagittal and coronal reconstructed images. The CT study is performed according to ALARA (as low as reasonably achievable) or ALARA/IMAGE GENTLY, with automatic adjustment of mA and/or kV according to patient size. Performed on: 09/21/2018 at 2:49 AM COMPARISON: CT thorax performed on 10/08/2014 FINDINGS: There is satisfactory visualization and contrast opacification of pulmonary arteries. No definite intra-arterial filling defects are identified to suggest acute or chronic pulmonary embolis m. The thoracic aorta is normal in caliber and contour without evidence of aneurysm or dissection. Th ere is enlargement of the right main pulmonary artery which could indicate pulmonary artery hypertens ion. The right main pulmonary artery measures approximately 3.5 cm in diameter. The appearance is sim ilar when compared to the prior study. There is some motion artifact on the images resulting in slight degradation of image quality. The rogerio gs are well expanded. There is a small to moderate right pleural effusion and small left pleural effu sol. There is no evidence of a pneumothorax. The heart is enlarged. There is no pericardial effusion. There is no reflux of contrast into the hepa tic veins to suggest right heart strain. No definite hilar or mediastinal lymphadenopathy is identified. There is a 1.7 x 1.9 cm lymph node in the right axilla which appears new since the prior study. No acute osseous abnormality is identified. There are mild degenerative changes along the thoracic sp ine. There is cortical irregularity along the proximal sternum likely related to motion artifact. The visualized upper abdominal structures are unremarkable. IMPRESSION: 1. No CT evidence to suggest acute or chronic pulmonary embolism, aortic aneurysm or aor tic dissection. 2. Enlargement of the right main pulmonary artery which is similar when compared to the prior study a nd may be related to underlying pulmonary artery hypertension. 3. Small to moderate right pleural effusion and small left pleural effusion. 4. Cardiomegaly. 5. Prominent right axillary lymph node which is new since the prior study. This measures 1.7 x 1.9 cm in cross-sectional diameter. 6. Irregularity along the proximal sternum likely related to motion artifact. A fracture is considere d less likely. Electronically signed by: Mindy Juarez DO 09/21/2018 4:39 AM CDT Due to temporary technical issues with the PACS/Fluency reporting system, reports are being signed by the in house radiologist as a courtesy to ensure prompt reporting. The interpreting radiologist is f ully responsible for the content of the report.
[2018-09-21 10:55] VITALS: O2SAT 90
[2018-09-21 12:47] VITALS: BP 132/63; TEMP 97.7
--- NOTE | 2018-09-21 20:32 | PN ---
Ms. Contreras was seen by Dr. Lovelace on 09/20/2018. She had been admitted by Dr. Lawrence for shortness of breath. She had atrial fibrillation. She has had that before. She came in with a troponin of 0.05 to 0.13, probably consistent with atrial fibrillation. Her BNP was elevated. She has a history of n oncompliance. She has normal rhythm today. She continues to be on Lovenox and metoprolol. I discus sed the possibility of her getting on one of the new anticoagulants, but she is not interested. I wi ll let her discuss that with Dr. Lawrence from our standpoint. She is doing well, enough cardiac hayes. I think she can go home whenever it is okay with Dr. Lawrence. We will be happy to see her as an outpa tient. GABE/LAURYN Voice ID: [id number] Report ID: [id number]
== END 2018-09-21 13:23 | disposition home or self-care (01) ==
LOC: ER 23:05 → ERHOLD 09-21 02:19 → 2ND 09-21 03:19
PROVIDERS: ADMIT Family Medicine; ATTEND Family Medicine
DX: I50.33 Acute on chronic diastolic (congestive) heart failure (principal); I48.2 Chronic atrial fibrillation; E03.9 Hypothyroidism, unspecified
CPT/HCPCS: 93005; 87040 ×2; 85025; 80048; 36415; 83735; 82550; 84484 ×2; 82553; 84145; 83880; 71275; 71045; 97163; 96374; 99285; Q9967; J1940 ×2; J1650; G0378 ×2; 81003; 81015

== ENCOUNTER → 2021-04-16 | Emergency (ER) | payer OTHER ==
[2021-04-16 04:02] LABS: Absolute Lymphocytes (CBC) 1.4 K/uL (0.7-4.9); Hematocrit 44.4 % (36.0-45.0); Lymphocytes % 17.8 % (15.3-44.8); MPV 9.9 fL (7.6-11.3); RBC Red Blood Cell Count 4.88 M/uL (3.86-4.86)
--- NOTE | 2021-04-16 08:07 | ER ---
Nurse's Notes [facility] Name: Renato Contreras Age: 76 yrs Sex: Female : 1945 Arrival Date: 04/16/2021 Time: 03:11 Bed 6 Private MD: Diagnosis: Hypoxemia;Obesity, unspecified;Systolic (congestive) heart failure;Lymphedema, not elsewhere classified;Venous insufficiency (chronic) (peripheral) Presentation: 04/16 03:12 Chief complaint: EMS states: PT WAS WALKING AROUND HER DESK AND THE CHAIR "ROLLED OUT kd3 FROM UNDER HER". PT STATED SHE FELL AND WAS ON THE FLOOR FOR 45 MINUTES. DENIES HITTING HER HEAD AND LOC. Coronavirus screen: Vaccine status: Patient reports being unvaccinated. Ebola Screen: No symptoms or risks identified at this time. Initial Sepsis Screen: Does the patient meet any 2 criteria? No. Patient's initial sepsis screen is negative. Does the patient have a suspected source of infection? No. Patient's initial sepsis screen is negative. Risk Assessment: Do you want to hurt yourself or someone else? Patient reports no desire to harm self or others. 03:12 Method Of Arrival: EMS: [facility] kd3 03:25 Onset of symptoms was April 16, 2021. kd3 03:25 Acuity: BRODY 3 kd3 Triage Assessment: 03:15 General: Appears in no apparent distress. Behavior is calm, cooperative. Pain: Denies kd3 pain. Historical: - Allergies: 03:15 No Known Allergies; kd3 - Home Meds: 03:23 None [Active]; kd3 - PMHx: 03:15 Atrial Fib; PAD; kd3 - Immunization history:: Adult Immunizations up to date, Client reports having NOT received the Covid vaccine. - Social history:: Smoking status: Patient/guardian denies using tobacco, but has a distant history of tobacco abuse. - Family history:: not pertinent. - Hospitalizations: : No recent hospitalization is reported. Screenin:23 Abuse screen: Denies threats or abuse. Denies injuries from another. kd3 03:25 Nutritional screening: No deficits noted. Tuberculosis screening: No symptoms or risk kd3 factors identified. Fall Risk IV access (20 points). Assessment: 03:21 General: Appears in no apparent distress. Behavior is calm, cooperative, appropriate kd3 for age. Pain: Denies pain. Neuro: Level of Consciousness is awake, alert, obeys commands, Oriented to person, place, time, situation, Gait is unsteady. Cardiovascular: Patient's skin is warm and dry. Respiratory: Airway is patent Respiratory effort is even, unlabored, Respiratory pattern is regular. GI: No signs and/or symptoms were reported involving the gastrointestinal system. : No signs and/or symptoms were reported regarding the genitourinary system. EENT: No signs and/or symptoms were reported regarding the EENT system. Derm: No signs and/or symptoms reported regarding the dermatologic system. Musculoskeletal: Reports weakness in right leg numbness in right leg. 05:08 Reassessment: Patient appears in no apparent distress at this time. Cardiovascular: as6 Edema is 3+ to right leg. Derm: Wound noted right chong Other: weeping venous ulcer. 07:52 General: Appears in no apparent distress. comfortable, well groomed, Behavior is calm, ph cooperative, appropriate for age, Denies fever, feeling ill. Pain: Denies pain. Neuro: Level of Consciousness is awake, alert, obeys commands, Oriented to person, place, time, situation. Cardiovascular: Denies chest pain, shortness of breath, Capillary refill < 3 seconds in bilateral fingers Patient's skin is warm and dry. Respiratory: Airway is patent Respiratory effort is even, unlabored, Respiratory pattern is regular, Denies shortness of breath. GI: No signs and/or symptoms were reported involving the gastrointestinal system. Derm: Skin is healthy with good turgor, Skin is pink, warm \\T\\ dry. Wound noted right chong. Musculoskeletal: Circulation, motion, and sensation intact. Range of motion: intact in all extremities. 08:00 Reassessment: pt refusing to keep monitoring devices on. pt states "this is why i dont tw2 come to doctors, this is too much". 08:30 Reassessment: US at bedside, pt currently sitting in recliner at bedside, refusing to ph get into bed, unable to to lie flat in recliner as well, pt now refusing US of legs, ERP notified of refusal. 09:20 Reassessment: Hospitalist at bedside, pt states to hospitalist and nurse that she does ph not wish to be admitted. Vital Signs: 03:19 BP 188 / 99; Pulse 85; Resp 18; Pulse Ox 96% on 2 lpm NC; Weight 120.2 kg; Height 5 ft. kd3 4 in. (162.56 cm); 03:45 Temp 98.1(O); as6 04:03 Pulse 82; Pulse Ox 94% on 2 lpm NC; kd3 05:07 BP 180 / 86; Pulse 78; Resp 21 S; Pulse Ox 95% on 2 lpm NC; as6 06:17 BP 177 / 88; Pulse 84; Resp 17; Pulse Ox 95% on 2 lpm NC; as6 08:00 BP 153 / 72; Pulse 76; Resp 17; Pulse Ox 95% on R/A; tw2 03:19 Body Mass Index 45.49 (120.20 kg, 162.56 cm) kd3 ED Course: 03:11 Patient arrived in ED. wm 03:12 Mindy Rahman, RN is Primary Nurse. kd3 03:15 Carlton Benítez MD is Attending Physician. rn 03:16 Arm band placed on right wrist. kd3 03:25 Triage completed. kd3 03:25 Patient has correct armband on for positive identification. Side rails up X 1. kd3 03:26 Maintain EMS IV. Dressing intact. Good blood return noted. Site clean \\T\\ dry. Gauge \\T\\ kd 3 site: 22G RIGHT WRIST . 03:34 XRAY Chest (1 view) In Process Unspecified. EDMS 03:44 Blood Culture Adult (2) Sent. as6 03:44 BNP Sent. as6 03:44 Troponin High Sensitivity Sent. as6 03:44 CBC with Automated Diff Sent. as6 03:44 Procalcitonin Sent. as6 03:44 CBC with Diff Sent. as6 03:44 Basic Metabolic Panel Sent. as6 07:15 Attending Physician role handed off by Carlton Benítez MD dread 07:15 Eliu Mora MD is Attending Physician. dread 07:54 Lab(s) recollected, by me, sent to lab. Inserted saline lock: 22 gauge in left hand, ph using aseptic technique. Blood collected. Oxygen administration via nasal cannula \\T\\ 2L/min Response to oxygen therapy: 95%. 08:02 Braxton Benítez MD is Hospitalizing Provider. dread 10:07 No provider procedures requiring assistance completed. IV discontinued, bleeding ph controlled, No redness/swelling at site. Pressure dressing applied. Administered Medications: 10:03 Not Given (Patient Refused; Left AMA): Lasix (furosemide) 20 mg IVP once; give over 2 ph minutes Outcome: 08:06 Decision to Hospitalize by Provider. dread 10:07 AMA AMA form signed ph 10:07 Condition: stable 10:08 Patient left the ED. ph Signatures: Dispatcher [employer] EDMS Eliu Mora MD MD cha Nieto, Roman, MD MD rn Hall, Patricia, RN RN ph Victoria Dooley RN RN [email or web address] Danii Franklin Ashby, RN RN as6 Mindy Rahman RN RN kd3 Corrections: (The following items were deleted from the chart) 03:23 03:23 Home Meds: tramadol 50 mg Oral tab 1 tab every 6 hrs PRN [Inactive]; kd3 kd3 07:15 06:17 BP 177 / 88; Pulse 84bpm; Resp 17bpm; Pulse Ox 95%; kd3 as6
--- NOTE | 2021-04-16 08:07 | EDPHYS ---
Physician Documentation [facility] Name: Renato Contreras Age: 76 yrs Sex: Female : 1945 Arrival Date: 04/16/2021 Time: 03:11 Bed 6 Private MD: ED Physician Eliu Mora HPI: 04/16 04:25 This 76 yrs old Female presents to ER via EMS with complaints of Fall Injury. rn 04:25 Details of fall: The patient fell from an upright position, while standing. Onset: The rn symptoms/episode began/occurred just prior to arrival. Associated injuries: The patient sustained Buttocks. Severity of symptoms: At their worst the symptoms were very mild, in the emergency department the symptoms have improved. The patient has not experienced similar symptoms in the past. The patient has not recently seen a physician. Patient reports at work, was going to sit down in a chair, chair rolled from under her and landed on her buttocks. States mild pain to buttocks but does not feel like anything is broken. Took a little while to get up due to chronic bilateral knee problems. Denies any new bony injury. Denies pain to hips. Denies back pain. Reports recent cough.. Historical: - Allergies: 03:15 No Known Allergies; kd3 - Home Meds: 03:23 None [Active]; kd3 - PMHx: 03:15 Atrial Fib; PAD; kd3 - Immunization history:: Adult Immunizations up to date, Client reports having NOT received the Covid vaccine. - Social history:: Smoking status: Patient/guardian denies using tobacco, but has a distant history of tobacco abuse. - Family history:: not pertinent. - Hospitalizations: : No recent hospitalization is reported. ROS: 04:25 Constitutional: Negative for fever, chills, and weight loss, Eyes: Negative for injury, rn pain, redness, and discharge, Neck: Negative for injury, pain, and swelling, Cardiovascular: Positive for cough and edema Respiratory: Positive for cough, Negative for shortness of breath Abdomen/GI: Negative for abdominal pain, nausea, vomiting, diarrhea, and constipation, Back: Negative for injury and pain, : Negative for injury, bleeding, discharge, and swelling, MS/Extremity: Positive for lower extremity edema Skin: Negative for injury, rash, and discoloration, Neuro: Negative for headache, weakness, numbness, tingling, and seizure. Exam: 04:25 Constitutional: Overweight female, no acute distress Head/Face: Normocephalic, rn atraumatic. Eyes: Periorbital areas with no swelling, redness, or edema. Cardiovascular: Regular rate and rhythm . No pulse deficits. Respiratory: Speaking full sentences, unlabored. No increased work of breathing, no retractions or nasal flaring. Abdomen/GI: Soft, non-tender Back: No midline spinal tenderness MS/ Extremity: Pulses equal, no cyanosis. 2+ edema bilateral lower extremities Neuro: Awake and alert, GCS 15, oriented to person, place, time, and situation. Cranial nerves II-XII grossly intact. Motor strength 4/5 in all extremities. Sensory grossly intact. Cerebellar exam normal. 08:06 ECG was reviewed by the Attending Physician. [facility] Vital Signs: 03:19 BP 188 / 99; Pulse 85; Resp 18; Pulse Ox 96% on 2 lpm NC; Weight 120.2 kg; Height 5 ft. kd3 4 in. (162.56 cm); 03:45 Temp 98.1(O); as6 04:03 Pulse 82; Pulse Ox 94% on 2 lpm NC; kd3 05:07 BP 180 / 86; Pulse 78; Resp 21 S; Pulse Ox 95% on 2 lpm NC; as6 06:17 BP 177 / 88; Pulse 84; Resp 17; Pulse Ox 95% on 2 lpm NC; as6 08:00 BP 153 / 72; Pulse 76; Resp 17; Pulse Ox 95% on R/A; tw2 03:19 Body Mass Index 45.49 (120.20 kg, 162.56 cm) kd3 MDM: 03:15 Patient medically screened. rn 07:30 Differential diagnosis: contusion, fracture, multiple trauma. Data reviewed: vital dread signs, nurses notes, lab test result(s), EKG, radiologic studies, CT scan, plain films. Data interpreted: cardiac monitor: rate is 84 beats/min, rhythm is regular, Pulse oximetry: on room air is 95 %. Test interpretation: by ED physician or midlevel provider: ECG, plain radiologic studies. Counseling: I had a detailed discussion with the patient and/or guardian regarding: the historical points, exam findings, and any diagnostic results supporting the discharge/admit diagnosis, lab results, radiology results, the need for outpatient follow up, for definitive care, 04/16 03:17 Order name: CBC with Diff rn 04/16 03:17 Order name: Basic Metabolic Panel; Complete Time: 09:03 rn 04/16 03:17 Order name: Procalcitonin; Complete Time: 09:03 rn 04/16 03:17 Order name: COVID-19/FLU A+B (Document "Date of Onset" if Symptomatic) rn 04/16 03:17 Order name: CBC with Automated Diff; Complete Time: 04:22 EDLA 04/16 03:18 Order name: Troponin High Sensitivity; Complete Time: 09:03 rn 04/16 03:17 Order name: XRAY Chest (1 view) rn 04/16 03:18 Order name: BNP; Complete Time: 09:03 rn 04/16 03:18 Order name: Blood Culture Adult (2) rn 04/16 07:50 Order name: LFT's; Complete Time: 09:03 [facility] 04/16 07:50 Order name: Magnesium; Complete Time: 09:03 [facility] 04/16 07:50 Order name: PT-INR; Complete Time: 09:03 [facility] 04/16 03:17 Order name: IV Start; Complete Time: 03:20 rn 04/16 03:18 Order name: EKG; Complete Time: 03:18 rn 04/16 03:18 Order name: EKG - Nurse/Tech; Complete Time: 04:02 rn 04/16 03:18 Order name: Cardiac monitoring; Complete Time: 04:02 rn 04/16 03:18 Order name: O2 Sat Monitoring; Complete Time: 03:20 rn 04/16 07:02 Order name: EKG Electrocardiogram EDLA 04/16 07:50 Order name: Labs collected and sent; Complete Time: 07:51 [facility] 04/16 07:50 Order name: O2 Per Protocol; Complete Time: 07:51 [facility] EC:06 Rate is 79 beats/min. Rhythm is regular. QRS [place] is Normal. MI interval is normal. QRS dread interval is normal. QT interval is normal. No Q waves. T waves are Normal. No ST changes noted. Clinical impression: Abnormal EKG without significant change and No evidence of ischemia. Interpreted by me. Reviewed by me. Administered Medications: 10:03 Not Given (Patient Refused; Left AMA): Lasix (furosemide) 20 mg IVP once; give over 2 ph minutes Disposition Summary: 04/16/21 08:06 Hospitalization Ordered Hospitalization Status: Observation dread Provider: Braxton Benítez cha Location: Telemetry/MedSurg (Inpatient) dread Condition: Fair dread Problem: new dread Symptoms: have improved dread Bed/Room Type: Standard dread Room Assignment: dread Diagnosis - Hypoxemia dread - Obesity, unspecified dread - Systolic (congestive) heart failure dread - Lymphedema, not elsewhere classified dread - Venous insufficiency (chronic) (peripheral) dread Discharge Instructions: - Discharge Summary Sheet ph Forms: - Medication Reconciliation Form dread - SBAR form dread - Work release form ph Signatures: Dispatcher [employer] EDMS Eliu Mora MD MD cha Nieto, Roman, MD MD rn Doucette, Kyli, RN RN Silvia Gloria RN ph Corrections: (The following items were deleted from the chart) 03:23 03:23 Home Meds: tramadol 50 mg Oral tab 1 tab every 6 hrs PRN [Inactive]; kd3 kd3 03:37 03:25 Pelvis+RAD.RAD.BRZ ordered. EDMS EDMS 03:37 03:32 Lumbar Spine 3 Views+RAD.RAD.BRZ ordered. EDMS EDMS 08:25 07:49 Extrem Venous W Compression Francois+US.RAD.BRZ ordered. EDMS EDMS
[2021-04-16 08:20] LABS: Potassium 4.6 mmol/L (3.5-5.1); Troponin High Sensitivity 19.1 pg/mL (<58.9)
[2021-04-16 08:21] LABS: Protime INR 1.11
[2021-04-16 08:30] LABS: Albumin 3.3 g/dL (3.4-5.0); Bilirubin Direct 0.3 mg/dL (0-0.2); Bilirubin Total 1.2 mg/dL (0.2-1.0); Magnesium 2.2 mg/dL (1.8-2.4); Protein, Total 7.2 g/dL (6.4-8.2)
[2021-04-16 10:40] VITALS: TEMP 98.1
[2021-04-16 10:43] VITALS: O2SAT 95
[2021-04-16 10:48] VITALS: BP 153/72
--- NOTE | 2021-04-16 14:15 | RAD REPORT ---
EXAM DESCRIPTION: Chest Single View 04/16/2021 3:57 AM OIL RAG WASHER CLINICAL HISTORY: 76 years, Female, COUGH COMPARISON: None. FINDINGS: Single view of the chest was obtained portable. No prior films are available for compariso n. The lung volume is decreased. The heart is in the upper normal size. The thoracic aorta is mildl y tortuous. Slight increased interstitial pulmonary markings could correspond to early fluid overload and/or over crowding pulmonary markings. Mild elevation right hemidiaphragm with minimal compressive atelectatic changes lung bases. No focal areas of consolidation. The rest of the soft tissue and b herman structures demonstrate to be unremarkable. IMPRESSION: Slight increased interstitial pulmonary markings could correspond to early fluid overloa d and/or over crowding pulmonary markings. Electronically signed by: Rodolfo Dow MD 04/16/2021 3:58 AM OIL RAG WASHER Due to temporary technical issues with the PACS/Fluency reporting system, reports are being signed by the in house radiologists without review as a courtesy to insure prompt reporting. The interpreting radiologist is fully responsible for the content of the report.
--- NOTE | 2021-04-16 17:32 | P.CNS ---
Date of Consult: 04/16/21 Reason for Consult: admission, hypoxia, CHF Requesting Physician: Eliu Mora Chief Complaint: fall, after missed chair History of Present Illness: 76yo F, PMH: CHF (unknown type), obesity, hypothyroidism, A. fib, peripheral artery disease, chronic venous insufficiency Presents to the ER with back/buttock pain after fall. Patient states she was walking around her desk and chair rolled out from under her, she fell and was on the floor for the last 45 minutes. No loss consciousness, did not her head. In the ED, she was noted to be hypoxic to 86-88% on room air, chest x-ray revealed some pulmonary edema, and exam consistent with bilateral lower extremity edema, with some erythema right lower extremity. Patient states this is about baseline for her no significant difference recently. She states she is aware she has CHF, and is noncompliant with medications. She has avoided seeing her physicians due to avoiding any unnecessary interactions to not get Covid. ED physician requests admission for CHF exacerbation and possible cellulitis. After briefly talking with the patient, she stated she does not think she needs to be admitted, refused admission, wanted to sign out AMA, states she will follow up with her doctor. She stated she had Lasix at home that she could take if she wanted to, does not feel that her legs are any worse than typical. Allergies No Known Drug Allergies Allergy (Verified 09/21/18 04:33) Unknown Home Medications: traMADol HCL [Ultram*] 50 mg PO Q6H PRN 09/19/18 Aspirin Chewable [Aspirin Chewable*] 81 mg PO DAILY #30 tab.chew 09/20/18 Metoprolol Tartrate [Lopressor*] 50 mg PO BID #60 tab 09/20/18 Levothyroxine [Synthroid*] 0.05 mg PO DAILYAC #30 tablet 09/21/18 - Past Medical/Surgical History Diabetic: No -: Hypothyroidism -: Atrial fibrillation/atrial flutter -: History of chronic anti coagulation therapy but held due to noncompliance -: PAD -: Non compliance with follow up and medication -: Venous insufficiency -: Hysterectomy -: Knee surgery -: right lower leg vein ablasion Psychosocial/ Personal History: Patient lives at home. She is a . - Family History Father Medical History: Heart disease Mother Medical History: Heart disease - Social History Smoking Status: Former smoker Alcohol use: Yes CD- Drugs: No Caffeine use: Yes Place of Residence: Home Review of Systems 10-point ROS is otherwise unremarkable Physical Examination Temp Pulse Resp BP Pulse Ox 98.1 F 76 17 153/72 H 04/16/21 03:45 04/16/21 08:00 04/16/21 08:00 04/16/21 08:00 General: Alert, In no apparent distress, Oriented x3 HEENT: Sclerae nonicteric Neck: No LAD Respiratory: Other (diminished at bases bilaterally, nonlabored) Cardiovascular: Regular rate/rhythm, No murmurs, Edema (2+ BLE ) Gastrointestinal: Soft and benign, Non-distended, No tenderness Musculoskeletal: No erythema, No tenderness Integumentary: Other (b/l venous insufficiency, erythema to RLE > LLE) Neurological: Normal speech, Normal strength at 5/5 x4 extr, Normal affect Laboratory Data (last 24 hrs) 04/16/21 07:50: PT 12.8 H, INR 1.11 04/16/21 07:50: Magnesium 2.2, Total Bilirubin 1.2 H, AST 19, ALT 19, Alkaline Phosphatase 105 04/16/21 07:50: Sodium 141, Potassium 4.6, BUN 15, Creatinine 0.95, Glucose 120 H 04/16/21 03:41: WBC 7.70, Hgb 14.6, Hct 44.4, Plt Count 238 Physician Review Additional Text: Problem List acute respiratory failure, hypoxemia secondary to acute on chronic CHF exac erbation Chronic venous insufficiency A. fib Peripheral artery disease Hypothyroidism Patient breathing comfortably at 96-98& on 2L NC. She ranged from 86-94% on room air in the ED. She does not feel she needs to be admitted. She is not more short of breath than usual. Her legs at the same amount of swelling/redness according to her. She knows what medical history she has, and she has not been compliant with her medications States she would not be in the ED if it were not for her fall and pain. She wanted this to be checked out, not anything else. After discussion, explaining that she may be in acute CHF exacerbation, and should get some diuresis and likely discharge tomorrow Patient still refused admission. ED physician was updated, patient signed out AMA Time Spent Managing Pts care (In Minutes): 60
== END ==
LOC: ER 03:10
DX: I50.20 Unspecified systolic (congestive) heart failure (principal); I89.0 Lymphedema, not elsewhere classified; I87.2 Venous insufficiency (chronic) (peripheral); E66.9 Obesity, unspecified; Z68.42 Body mass index [BMI] 45.0-49.9, adult; E03.9 Hypothyroidism, unspecified; I48.91 Unspecified atrial fibrillation; I73.9 Peripheral vascular disease, unspecified; W07.XXXA Fall from chair, initial encounter; Z79.82 Long term (current) use of aspirin; Z82.49 Family history of ischemic heart disease and other diseases of the circulatory system
CPT/HCPCS: 36415; 71045; 80048; 80076; 83735; 83880; 84145; 84484; 85025; 85610; 87040; 87077; 87186; 87205; 93005; 99284

== ENCOUNTER 2022-03-03 12:50 | Emergency (ER) | payer OTHER ==
--- NOTE | 2022-03-03 13:21 | RAD REPORT ---
EXAM DESCRIPTION: CT - Ct Stroke Brain Wo Cont - 03/03/2022 1:09 pm CLINICAL HISTORY: Left-sided weakness COMPARISON: none TECHNIQUE: Computed axial tomography of the head was obtained. All CT scans are performed using dose optimization technique as appropriate and may include automated exposure control or mA/KV adjustment according to patient size. FINDINGS: An intracranial bleed is not seen . The ventricles are normal in caliber. No extra-axial fluid collection is noted. 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 Fluid within the sinuses/ mastoids is not seen. IMPRESSION: No acute intracranial abnormality is seen. If patient's symptoms persist MRI of the bra in would be recommended. [place] of the emergency room was notified at 1:03 p.m. a March 03, 2022
[2022-03-03 13:24] LABS: Urine Blood Trace-intact (Negative); Urine Glucose Negative (Negative); Urine Protein 1+ (Negative); Urine Specific Gravity >=1.030 (1.005-1.030); Urine pH 5.5 (5.0-7.0)
--- NOTE | 2022-03-03 14:00 | EDPHYS ---
Physician Documentation [facility] Name: Renato Contreras Age: 76 yrs Sex: Female : 1945 Arrival Date: 03/03/2022 Time: 12:56 Bed 20 Private MD: ED Physician Carlitos Greco HPI: 03/03 13:31 This 76 yrs old Female presents to ER via EMS with complaints of left facial droop. snw 13:31 The patient presents with decreased mental status, trouble concentrating. Onset: The snw symptoms/episode began/occurred acutely, pt's Daughter states pt went to bathroom. Daughter states she checked on her 3-4 hours later and she was unable to get off the toilet and had some facial drooping on the left.. Possible causes: CVA or TIA, seizure, sepsis. Associated signs and symptoms: The patient has no apparent associated signs or symptoms. Current symptoms: In the emergency department the patient's symptoms are unchanged from the initial presentation. Patient's baseline: Neuro: alert and fully oriented, Motor: no deficits, Ambulation: walks without assistance, Speech: normal, The patient has a previous history of a. fib (no anticoagulants), pt is not taking any po medications. The patient has not experienced similar symptoms in the past. The patient has not recently seen a physician, the patient's primary care provider is Dr. Dr. Baum . Historical: - PMHx: 13:05 Atrial Fib; PAD; jh5 - Immunization history:: Adult Immunizations up to date. - Social history:: Smoking status: Patient denies any tobacco usage or history of. ROS: 13:30 Eyes: Negative for injury, pain, redness, and discharge, ENT: Negative for injury, snw pain, and discharge, Neck: Negative for injury, pain, and swelling, Cardiovascular: Negative for chest pain, palpitations, and edema, Respiratory: Negative for shortness of breath, cough, wheezing, and pleuritic chest pain, Abdomen/GI: Negative for abdominal pain, nausea, vomiting, diarrhea, and constipation, Back: Negative for injury and pain, : Negative for injury, bleeding, discharge, and swelling, MS/Extremity: Negative for injury and deformity, Skin: Negative for injury, rash, and discoloration. 13:30 Constitutional: Positive for fatigue, malaise. 13:30 Neuro: Positive for altered mental status, gait disturbance, weakness, of the right leg and left leg. Exam: 13:11 Head/Face: Normocephalic, atraumatic. snw 13:11 ENT: Nares patent. No nasal discharge, no septal abnormalities noted. Tympanic membranes are normal and external auditory canals are clear. Oropharynx with no redness, swelling, or masses, exudates, or evidence of obstruction, uvula midline. Mucous membranes moist. Neck: Trachea midline, no thyromegaly or masses palpated, and no cervical lymphadenopathy. Supple, full range of motion without nuchal rigidity, or vertebral point tenderness. No Meningismus. Chest/axilla: Normal chest wall appearance and motion. Nontender with no deformity. No lesions are appreciated. 13:11 Respiratory: Lungs have equal breath sounds bilaterally, clear to auscultation and percussion. No rales, rhonchi or wheezes noted. No increased work of breathing, no retractions or nasal flaring. Abdomen/GI: Soft, non-tender, with normal bowel sounds. No distension or tympany. No guarding or rebound. No evidence of tenderness throughout. Back: No spinal tenderness. No costovertebral tenderness. Full range of motion. MS/ Extremity: Pulses equal, no cyanosis. Neurovascular intact. Full, normal range of motion. 13:11 Constitutional: The patient appears alert, awake, frail, obese. 13:11 Eyes: Pupils: no acute changes, Extraocular movements: gaze deviation towards the lateral on right eye, Conjunctiva: normal, Corneas: are normal, Sclera: no appreciated abnormality, Lids and lashes: appear normal. 13:11 Cardiovascular: Rate: tachycardic, Rhythm: irregularly irregular, Pulses: Pulses are 1+ in right dorsalis pedis artery and left dorsalis pedis artery. Heart sounds: S3, increased, Edema: 2+ edema to level of left midcalf, left ankle, left foot, right midcalf, right ankle and right foot. 13:11 Skin: Appearance: Color: normal in color, Temperature: normal temperature, cellulitis, that is moderate, patchy, on the right leg and left leg. 13:11 Neuro: Orientation: is normal, Mentation: lucid, Memory: immediate memory is impaired, Motor: Strength is 2/5 in the right leg and left leg, Sensation: no obvious gross deficits, Gait: not tested. seizure activity, is not displayed by the patient. 14:01 ECG was reviewed by the Attending Physician. snw Vital Signs: 12:57 BP 139 / 84; Pulse 62; Resp 18; Temp 98.6(O); Pulse Ox 90% on R/A; Weight 118 kg; jh5 Height 5 ft. 4 in. (162.56 cm); 13:07 BP 121 / 78; Pulse 140; Resp 18; Pulse Ox 86% on R/A; jh5 15:28 Pulse 136; Resp 24; Pulse Ox 94% ; jh5 17:13 BP 121 / 83; Pulse 127; Resp 24; Pulse Ox 93% ; jh5 12:57 Body Mass Index 44.65 (118.00 kg, 162.56 cm) 5 NIH Stroke Scale Scores: 13:11 NIHSS Score: 8 snw [place] Coma Score: 13:11 Eye Response: spontaneous(4). Verbal Response: oriented(5). Motor Response: obeys snw commands(6). Total: 15. MDM: 12:57 Patient medically screened. snw 13:28 Differential Diagnosis: CVA, electrolyte abnormality, intracranial bleed, pneumonia, snw sepsis, TIA. Data reviewed: vital signs, nurses notes. Consideration of Admission/Observation Patient was admitted/placed on observation. Management of patient was discussed with the following: Head Start Coordinator: Dr. Ayala, states Sinus Tach. R/o PE. I will be admitting pt to inpatient area. 13:39 Management of patient was discussed with the following: Head Start Coordinator: Dr. Ayala at [facility] bedside, Susie edward on monitor. Instructed to start amiodarone bolus/drip. If more rate control needed, start IV metoprolol.. Historians other than the Patient: EMS: [facility]. Daughter/Son: by history. Care significantly affected by the following chronic conditions: Hypertension, Obesity. Care significantly affected by the following Social Determinants of Health: no regular meds. Special discussion:. 13:57 Counseling: I had a detailed discussion with the patient and/or guardian regarding: the snw historical points, exam findings, and any diagnostic results supporting the discharge/admit diagnosis, radiology results, the need for further work-up and treatment in the hospital. ED course: Will admit to Dr. Benítez's services. Pt to go to ICU. . 16:42 Awaiting: CT scan results, negative noncontrast CT, however on CT with contrast result, snw +PE and right internal carotid artery occlusion, pt is not an appropriate admission for [facility]. WIll initiate transfer to [facility] post consulting with both the radiologist to better characterize the structure at the mediastinum and also Dr. Garcia, who states intra-arterial TNK has a 24hour potential window. 17:16 ED course: Just rec'd WBC 21.10, + source, lactate 3.2 - pt meets criteria for sepsis, snw no shock. No 30ml/kg bolus as pt with mild CHF. 17:27 ED course: Spoke with Dr. Myles at [facility], directed to speak with Medical ICU or snw Pulmonary ICU MD as endovascular potential with consults to specialties. 17:40 ED course: Spoke with Dr. Yepez, [facility], who kindly accepts pt in transfer.. snw 19:30 Post IV fluid administration reassessment for Sepsis: Client not prescribed the 30 snw mL/kg IVF due to: concern for heart failure. Heart: Irregular rhythm noted. lower rate Current vital signs reviewed: Yes. Neuro: Neurological examination improved from previous exam. Cardio: Cardiovascular examination improved from previous exam. Heart rate and blood pressure have improved. Respiratory: Respiratory exam improved from previous exam. 03/03 13:03 Order name: Basic Metabolic Panel [facility] 03/03 13:03 Order name: CBC with Diff; Complete Time: 18:28 [facility] 03/03 13:03 Order name: Hepatic Function; Complete Time: 16:34 [facility] 03/03 13:03 Order name: High Sensitivity Troponin; Complete Time: 16:34 [facility] 03/03 13:03 Order name: Magnesium; Complete Time: 16:34 [facility] 03/03 13:03 Order name: Protime (+inr); Complete Time: 16:04 [facility] 03/03 13:03 Order name: Ptt, Activated; Complete Time: 16:04 [facility] 03/03 13:03 Order name: UDS; Complete Time: 14:30 [facility] 03/03 13:03 Order name: Blood Culture Adult (2) [facility] 03/03 13:03 Order name: CMP; Complete Time: 16:34 [facility] 03/03 13:03 Order name: Lactate w/ 2H reflex if indic.; Complete Time: 16:11 sn 03/03 13:03 Order name: Urine Culture [facility] 03/03 13:03 Order name: Urine Microscopic Only; Complete Time: 14:41 sn 03/03 13:10 Order name: SARS RAPID; Complete Time: 16:58 snw 03/03 13:03 Order name: CT Stroke Brain w/o Contrast [facility] 03/03 13:03 Order name: Stroke CXR 1 View; Complete Time: 15:53 [facility] 03/03 13:08 Order name: Ct Stroke Brain Wo Cont; Complete Time: 13:37 EDMS 03/03 13:24 Order name: Urine Dipstick-Ancillary; Complete Time: 13:37 EDWI 03/03 13:54 Order name: US Lower Extremity Arterial Bilateral [facility] 03/03 13:54 Order name: CT Chest For PE Angio [facility] 03/03 13:54 Order name: CT Head Brain w Cont [facility] 03/03 13:58 Order name: Chest For Pe Angio; Complete Time: 15:40 EDWI 03/03 15:42 Order name: CREATININE WHOLE BLOOD; Complete Time: 15:46 EDWI 03/03 16:26 Order name: Phosphorus; Complete Time: 16:34 EDMS 03/03 16:26 Order name: T4 Free; Complete Time: 16:34 EDWI 03/03 16:26 Order name: Thyroid Stimulating Hormone; Complete Time: 16:34 EDMS 03/03 16:26 Order name: Hemoglobin A1c; Complete Time: 16:34 EDMS 03/03 18:02 Order name: glucometer results - FOR PT WITH NO ID 03/03 18:04 Order name: Manual Differential; Complete Time: 18:28 EDWI 03/03 19:27 Order name: Lactate Sepsis 2 HR Follow-up; Complete Time: 19:29 EDWI 03/03 13:03 Order name: Call for Old EKG 03/03 13:03 Order name: EKG; Complete Time: 13:05 [facility] 03/03 13:03 Order name: Accucheck; Complete Time: 13:06 [facility] 03/03 13:03 Order name: Cardiac monitoring; Complete Time: 13:07 [facility] 03/03 13:03 Order name: EKG - Nurse/Tech; Complete Time: 13:07 [facility] 03/03 13:03 Order name: IV Saline Lock; Complete Time: 14:23 snw 03/03 13:03 Order name: Labs collected and sent; Complete Time: 14:23 snw 03/03 13:03 Order name: NPO; Complete Time: 13:07 snw 03/03 13:03 Order name: O2 Per Protocol; Complete Time: 13:07 snw 03/03 13:03 Order name: O2 Sat Monitoring; Complete Time: 13:07 snw 03/03 13:03 Order name: Stroke Swallow Screen; Complete Time: 13:07 snw 03/03 13:03 Order name: Cath; Complete Time: 14:23 snw 03/03 13:03 Order name: IV Saline Lock - Large Bore; Complete Time: 13:06 snw 03/03 13:03 Order name: Vital Signs; Complete Time: 13:06 snw 03/03 13:03 Order name: Vale; Complete Time: 14:24 snw 03/03 15:09 Order name: US; Complete Time: 15:16 EDMS 03/03 15:46 Order name: Echo w/ Doppler w 03/03 15:48 Order name: CT; Complete Time: 15:49 EDMS 03/03 15:58 Order name: Labs - recollect needed: recollect lavender top; Complete Time: 17:07 bd 03/03 16:02 Order name: Labs - recollect needed: recollect rapid covid, use covid swab instead of bd strep; Complete Time: 16:25 EC:55 Rate is 139 beats/min. Rhythm is irregular. OK interval is normal. QRS interval is snw normal. T waves are Inverted in leads III, aVR, V3. Clinical impression: Atrial Flutter. Administered Medications: 14:18 Drug: amiodarone 150 mg Volume: 100 ml; Route: IVPB; Infused Over: 10 mins; [facility]; 14:28 Follow up: IV Intake: 100ml [facility] 14:18 Drug: foLIC Acid 1 mg Route: IVPB; Site: right antecubital; [facility] 14:18 Follow up: IV Status: Completed infusion [facility] 14:18 Drug: Aspirin Chewable Tablet 324 mg Route: PO; [facility] 15:27 Drug: amiodarone 900 mg, D5W 500 ml Route: IVPB; Rate: 1 mg/min; Site: right wrist; 5 16:13 Drug: Heparin (DVT/PE- Bolus per protocol) - HEParin 80 units/kg {Co-Signature: nelsy chisholm5 (Yvonne Mix RN).} {Note: 8000 units.} Route: IVP; Site: right antecubital; 16:14 Drug: Heparin (DVT/PE Drip) 18 units/kg/hr - (HEParin 50620 units, D5W 500 ml) 5 {Co-Signature: koSonido (Yvonne Mix RN).} {Note: 1800 units/hour.} Route: IV; Rate: calculated rate; Site: right antecubital; 18:05 Drug: vancoMYCIN 1.5 grams Route: IVPB; Rate: calculated rate; Site: right wrist; [facility] Disposition: 03/04 12:34 Co-signature as Attending Physician, Carlitos Greco MD I agree with the assessment and kdr plan of care. Disposition Summary: 03/03/22 17:44 Transfer Ordered Transfer Location: [facility] snw Reason: Higher level of care snw Condition: Serious(03/03/22 17:44) snw Problem: new(03/03/22 17:44) snw Symptoms: are unchanged(03/03/22 17:44) snw Accepting Physician: Dr. Yepez(03/03/22 19:40) jb4 Diagnosis - Altered mental status, unspecified(03/03/22 17:44) snw - Weakness snw - Pulmonary embolism without acute cor pulmonale(03/03/22 17:44) snw - RIght internal carotid artery occlusion snw - Unspecified atrial flutter(03/03/22 17:44) snw - Subsequent non-ST elevation (NSTEMI) myocardial infarction snw - Cellulitis with sepsis without shock snw Forms: - Medication Reconciliation Form snw - SBAR form snw NIH Stroke Scale - NIH Stroke Score Date: 03/03/2022 Time: 13:11 Total Score = 8 1a. Level of Consciousness (LOC) - 0(Alert) 1b. Level of Consciousness (LOC) (Month \T\ Age) - 0(Both) 1c. LOC Commands (Open \T\ Closes Eyes/Biodiesel Plant Superintendent) - 0(Both) 2. Best Gaze (Lateral Gaze Paresis) - 1(Partial gaze palsy) 3. Visual Field Loss - 0(No visual loss) 4. Facial Palsy - 1(Minor Paralysis) 5a. Left Arm: Motor (10-second hold) - 0(No drift) 5b. Right Arm: Motor (10-second hold) - 0(No drift) 6a. Left Leg: Motor (5-second hold - always test supine) - 2(Drift, some effort against gravity) 6b. Right Leg: Motor (5-second hold - always test supine) - 2(Drift, some effort against gravity) 7. Limb Ataxia (finger/nose \T\ heel/chong - test with eyes open) - 2(Present in two limbs) 8. Sensory Loss (pinprick arms/legs/face) - 0(Normal) 9. Best Language: Aphasia (description/naming/reading) - 0(No aphasia) 10. Dysarthria (speech clarity - read or repeat words) - 0(Normal) 11. Extinction and Inattention (visual/tactile/auditory/spatial/personal) - 0(No abnormality) Initials: snw Signatures: Dispatcher [employer] EDMS Sunni Covarrubias Kevin, MD MD kdr Savannah Schultz, COMMISSIONS SPECIALIST-C COMMISSIONS SPECIALIST-Csnw Dale Rico, RN RN jb4 Hanna Stauffer, FANY RN jh5 Yvonne Mix RN ko1 Corrections: (The following items were deleted from the chart) 03/03 16:46 13:59 Inpatient Admission snw snw 16:46 13:59 Braxton Benítez snw snw 16:46 13:59 Intensive Care Unit snw snw 16:46 13:59 Stable snw snw 16:46 13:59 an acute exacerbation snw snw 16:46 13:59 are unchanged snw snw 16:46 13:59 Standard snw snw 16:46 13:59 snw snw 16:46 13:59 Unspecified atrial flutter snw snw 16:46 13:59 Altered mental status, unspecified snw snw 16:46 13:59 Cellulitis, unspecified snw snw 16:46 15:46 Pulmonary embolism without acute cor pulmonale snw snw 19:40 17:44 Dr. Yepez snw jb4
--- NOTE | 2022-03-03 14:00 | ER ---
Nurse's Notes [facility] Name: Renato Contreras Age: 76 yrs Sex: Female : 1945 Arrival Date: 03/03/2022 Time: 12:56 Bed 20 Private MD: Diagnosis: Altered mental status, unspecified;Weakness;Pulmonary embolism without acute cor pulmonale;RIght internal carotid artery occlusion;Unspecified atrial flutter;Subsequent non-ST elevation (NSTEMI) myocardial infarction;Cellulitis with sepsis without shock Presentation: 03/03 12:57 Chief complaint: EMS states: Per the daughter pt was in the bathroom for 3-4 hours; jh5 then daughter went in to check on her and she had left sided weakness and facial droop, pt was lethargic on scene and in AFIB with RVR. 18g was established to right AC infusing NS and pt received 25 of Cardizem in route. Pt is awake and alert, there is an obvious cognitive disconnect being that she inaccurately recalls what occurred this morning and with EMS. Pt can move all extremities well, there is left facial droop noted that EMS states is a lot better than from when they arrived. Coronavirus screen: Vaccine status: Patient reports receiving the 2nd dose of the covid vaccine. Client denies travel out of the [place] in the last 14 days. Ebola Screen: Patient negative for fever greater than or equal to 101.5 degrees Fahrenheit, and additional compatible Ebola Virus Disease symptoms Patient denies exposure to infectious person. Patient denies travel to an Ebola-affected area in the 21 days before illness onset. Initial Sepsis Screen: Does the patient meet any 2 criteria? No. Patient's initial sepsis screen is negative. Does the patient have a suspected source of infection? No. Patient's initial sepsis screen is negative. Risk Assessment: Do you want to hurt yourself or someone else? Patient reports no desire to harm self or others. Onset of symptoms was February 2022. 12:57 Method Of Arrival: EMS: [place] [address] 12:57 Acuity: BRODY 3 [facility] 13:17 Acuity: BRODY 2 iw Triage Assessment: 13:05 General: Appears comfortable, obese, Behavior is calm, cooperative, appropriate for [facility] age. Pain: Denies pain. Historical: - PMHx: 13:05 Atrial Fib; PAD; jh5 - Immunization history:: Adult Immunizations up to date. - Social history:: Smoking status: Patient denies any tobacco usage or history of. Screenin:14 [facility] ED Fall Risk Assessment (Adult) History of falling in the last 3 months, [facility] including since admission No falls in past 3 months (0 pts) Confusion or Disorientation No (0 pts) Intoxicated or Sedated No (0 pts) Impaired Gait No (0 pts) Mobility Assist Device Used No (0 pt) Altered Elimination No (0 pt) Score/Fall Risk Level 0 - 2 = Low Risk. Abuse screen: Denies threats or abuse. Denies injuries from another. Nutritional screening: No deficits noted. Tuberculosis screening: No symptoms or risk factors identified. Vital Signs: 12:57 BP 139 / 84; Pulse 62; Resp 18; Temp 98.6(O); Pulse Ox 90% on R/A; Weight 118 kg; [facility] Height 5 ft. 4 in. (162.56 cm); 13:07 BP 121 / 78; Pulse 140; Resp 18; Pulse Ox 86% on R/A; [facility] 15:28 Pulse 136; Resp 24; Pulse Ox 94% ; [facility] 17:13 BP 121 / 83; Pulse 127; Resp 24; Pulse Ox 93% ; [facility] 12:57 Body Mass Index 44.65 (118.00 kg, 162.56 cm) [facility] [place] Coma Score: 13:11 Eye Response: spontaneous(4). Verbal Response: oriented(5). Motor Response: obeys snw commands(6). Total: 15. NIH Stroke Scale Scores: 13:11 NIHSS Score: 8 [facility] ED Course: 12:56 Patient arrived in ED. bd 12:57 Savannah Schultz FNP-C [facility]. snw 12:57 Carlitos Greco MD is Attending Physician. snw 13:05 Triage completed. jh5 13:05 Arm band placed on right wrist. jh5 13:08 Ct Stroke Brain Wo Cont In Process Unspecified. EDMS 13:57 Stroke CXR 1 View In Process Unspecified. EDMS 13:58 Braxton Benítez MD is Hospitalizing Provider. snw 15:01 Hanna Stauffer, FANY is Primary Nurse. jl7 15:59 SARS RAPID Sent. bc6 16:00 COVID swab sent to lab. 6 16:46 attempted to transfer pt to [facility] phone was never answered after 2 bd attempts. 16:47 initiated transfer to [facility]. bd 17:14 No provider procedures requiring assistance completed. [facility] 17:15 Patient has correct armband on for positive identification. Side rails up X2. [facility] Administered Medications: 14:18 Drug: amiodarone 150 mg Volume: 100 ml; Route: IVPB; Infused Over: 10 mins; Site: right 5 antecubital; 14:28 Follow up: IV Intake: 100ml [facility] 14:18 Drug: foLIC Acid 1 mg Route: IVPB; Site: right antecubital; [facility] 14:18 Follow up: IV Status: Completed infusion [facility] 14:18 Drug: Aspirin Chewable Tablet 324 mg Route: PO; [facility] 15:27 Drug: amiodarone 900 mg, D5W 500 ml Route: IVPB; Rate: 1 mg/min; Site: right wrist; [facility] 16:13 Drug: Heparin (DVT/PE- Bolus per protocol) - HEParin 80 units/kg {Co-Signature: koSonido [facility] (Yvonne Mix RN).} {Note: 8000 units.} Route: IVP; Site: right antecubital; 16:14 Drug: Heparin (DVT/PE Drip) 18 units/kg/hr - (HEParin 77121 units, D5W 500 ml) [facility] {Co-Signature: ko1 (Yvonne Mix RN).} {Note: 1800 units/hour.} Route: IV; Rate: calculated rate; Site: right antecubital; 18:05 Drug: vancoMYCIN 1.5 grams Route: IVPB; Rate: calculated rate; Site: right wrist; [facility] Medication: 17:14 VIS not applicable for this client. [facility] Intake: 14:28 IV: 100ml; Total: 100ml. [facility] Outcome: 13:59 Decision to Hospitalize by Provider. snw 17:44 ER care complete, transfer ordered by MD. snw 19:40 Patient left the ED. jb4 NIH Stroke Scale - NIH Stroke Score Date: 03/03/2022 Time: 13:11 Total Score = 8 1a. Level of Consciousness (LOC) - 0(Alert) 1b. Level of Consciousness (LOC) (Month \T\ Age) - 0(Both) 1c. LOC Commands (Open \T\ Closes Eyes/Supervisor Inspection Room) - 0(Both) 2. Best Gaze (Lateral Gaze Paresis) - 1(Partial gaze palsy) 3. Visual Field Loss - 0(No visual loss) 4. Facial Palsy - 1(Minor Paralysis) 5a. Left Arm: Motor (10-second hold) - 0(No drift) 5b. Right Arm: Motor (10-second hold) - 0(No drift) 6a. Left Leg: Motor (5-second hold - always test supine) - 2(Drift, some effort against gravity) 6b. Right Leg: Motor (5-second hold - always test supine) - 2(Drift, some effort against gravity) 7. Limb Ataxia (finger/nose \T\ heel/chong - test with eyes open) - 2(Present in two limbs) 8. Sensory Loss (pinprick arms/legs/face) - 0(Normal) 9. Best Language: Aphasia (description/naming/reading) - 0(No aphasia) 10. Dysarthria (speech clarity - read or repeat words) - 0(Normal) 11. Extinction and Inattention (visual/tactile/auditory/spatial/personal) - 0(No abnormality) Initials: snw Signatures: Dispatcher [employer] EDMS Sunni Covarrubias Shelly, CONDUIT HELPER-C CONDUIT HELPER-Csnw Krysta Rust, FANY SOARES iw Dale Rico, RN RN jb4 Pretty Mehta RN RN jl7 Hanna Stauffer RN RN jh5 Lawanda Dey6 Yvonne Mix RN ko1
[2022-03-03] MEDS ORDERED: AMIODARONE HCL 150 MG/3 ML INJ IV ONE (14:14)
[2022-03-03] MEDS ORDERED: D5W 100 ML IV ONE (14:15)
[2022-03-03] MEDS ORDERED: FOLIC ACID 5 MG/ML VIAL ONE (14:17)
[2022-03-03] MEDS ORDERED: ASPIRIN 81 MG CHEWABLE TABLET ONE (14:17)
[2022-03-03 14:23] LABS: Barbiturates NEGATIVE (NEGATIVE); Benzodiazepines NEGATIVE (NEGATIVE); Cocaine NEGATIVE (NEGATIVE); METHAMPHETAM NEGATIVE (NEGATIVE); Methadone NEGATIVE (NEGATIVE); Opiates NEGATIVE (NEGATIVE); Phencyclidine NEGATIVE (NEGATIVE); THC Cannibis NEGATIVE (NEGATIVE)
[2022-03-03 14:34] LABS: Urine Bacteria None Seen /HPF (<20); Urine Crystals Unidentified Few /HPF (None Seen); Urine Granular Casts >20 /LPF (None Seen); Urine Mucus Slight /HPF (None Seen); Urine RBC <5 /HPF (None Seen); Urine WBC Clump Rare /HPF (None Seen)
[2022-03-03] MEDS ORDERED: ACETAMINOPHEN 325 MG TABLET PO PRN (14:56)
[2022-03-03] MEDS ORDERED: HYDROCODONE/APAP 5/325 MG TAB PO PRN (14:56)
[2022-03-03] MEDS ORDERED: TRAMADOL HCL 50 MG TAB PO PRN (14:57)
[2022-03-03] MEDS ORDERED: ONDANSETRON 4 MG/2 ML VIAL IV PRN (14:59)
[2022-03-03] MEDS ORDERED: HEPARIN/D5W 25,000 UNIT/500 ML BAG IV PRN (15:00)
[2022-03-03] MEDS ORDERED: AMIODARONE HCL 900 MG in Dextrose 5%-Water 482 ML IV SCH (15:00)
--- NOTE | 2022-03-03 15:07 | P.HP ---
Patient History Date of Service: 03/03/22 Allergies No Known Drug Allergies Allergy (Verified 09/21/18 04:33) Unknown Home Medications: traMADol HCL [Ultram*] 50 mg PO Q6H PRN 09/19/18 Aspirin Chewable [Aspirin Chewable*] 81 mg PO DAILY #30 tab.chew 09/20/18 Metoprolol Tartrate [Lopressor*] 50 mg PO BID #60 tab 09/20/18 Levothyroxine [Synthroid*] 0.05 mg PO DAILYAC #30 tablet 09/21/18 - Past Medical/Surgical History Diabetic: No -: Hypothyroidism -: Atrial fibrillation/atrial flutter -: History of chronic anti coagulation therapy but held due to noncompliance -: PAD -: Non compliance with follow up and medication -: Venous insufficiency -: Hysterectomy -: Knee surgery -: right lower leg vein ablasion Psychosocial/ Personal History: Patient lives at home. She is a . - Family History Father -: Heart disease Mother -: Heart disease - Social History Alcohol use: No CD- Drugs: No Caffeine use: Yes Assessment and Plan - Advance Directives Does patient have a Living Will: No Does patient have a Durable POA for Healthcare: No
--- NOTE | 2022-03-03 15:09 | RAD REPORT ---
EXAM DESCRIPTION: US - Lower Extremity Arterial Bilat - 03/03/2022 2:54 pm CLINICAL HISTORY: Leg pain/cellulitis/peripheral arterial disease COMPARISON: March 2021 FINDINGS: Right common femoral, superficial femoral and popliteal arteries demonstrate triphasic waveforms The right posterior tibial and dorsalis pedis arteries demonstrate biphasic waveforms The left common femoral, superficial femoral and popliteal arteries demonstrate triphasic waveforms Left dorsalis pedis arterial waveform biphasic. Evaluation of left posterior tibial artery limited due to patient motion Grayscale, color and spectral analysis performed on all vessels IMPRESSION: Mild arterial disease distal aspects lower extremities bilaterally Limited evaluation left posterior tibial artery
--- NOTE | 2022-03-03 15:37 | RAD REPORT ---
EXAM DESCRIPTION: CT - Chest For Pe Angio - 03/03/2022 3:17 pm CLINICAL HISTORY: Chest pain COMPARISON: 2019 TECHNIQUE: Dynamically enhanced axial 3 mm thick images of the chest were obtained during administra tion of <100> mL Isovue 370 IV contrast. Coronal and oblique reconstruction images were generated and reviewed. Exam utilizes a protocol for optimal evaluation of pulmonary arterial tree. Maximum intensity projections 3D imaging was utilized All CT scans are performed using dose optimization technique as appropriate and may include automated exposure control or mA/KV adjustment according to patient size. FINDINGS: Thrombus is present within right lower lobe pulmonary arterial artery. No thrombus is seen within the main, right main, left main and left pulmonary arteries. A thoracic aortic aneurysm is not noted. Small bilateral pleural effusions. Mild bilateral interstitial lung opacities probably interstitial pulmonary edema. Cardiomegaly. 4 x 3 centimeter structure left anterior mediastinum abuts the aortic arch. Evaluation is limited as there is considerable artifact in this region IMPRESSION: Right lower lobe pulmonary emboli Mild CHF 4 x 3 centimeter structure left anterior mediastinum abuts the aortic arch. It is uncertain if this i s vascular or lymphadenopathy. Ultrasound is recommended for further evaluation
--- NOTE | 2022-03-03 15:48 | RAD REPORT ---
EXAM DESCRIPTION: CT - Head Brain W Cont - 03/03/2022 3:17 pm CLINICAL HISTORY: CVA COMPARISON: None TECHNIQUE: Computed axial tomography of the head was obtained. 100 cc Isovue-300 administered intrav enously All CT scans are performed using dose optimization technique as appropriate and may include automated exposure control or mA/KV adjustment according to patient size. FINDINGS: An intracranial bleed is not seen . The ventricles are normal in caliber. No extra-axial fluid collection is noted. 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 The visualized distal right internal carotid artery is occluded. Fluid within the sinuses/ mastoids is not seen. IMPRESSION: The visualized distal right internal carotid artery is occluded
--- NOTE | 2022-03-03 15:52 | RAD REPORT ---
EXAM DESCRIPTION: Denise Single View03/03/2022 1:56 pm CLINICAL HISTORY: Chest pain COMPARISON: April 2021 FINDINGS: Mild bilateral pulmonary opacities. The heart is mildly to moderately enlarged IMPRESSION: Mild CHF
[2022-03-03] MEDS ORDERED: HEPARIN/D5W 25,000 UNIT/500 ML BAG IV ONE (15:55)
[2022-03-03 15:59] LABS: Protime INR 1.32
[2022-03-03] MEDS ORDERED: CEFTRIAXONE 1,000 MG in NA CHLORIDE 0.9% 50 ML IVPB SCH (16:00)
[2022-03-03] MEDS ORDERED: HEPARIN 5000 UNIT/ML 1 ML VIAL ONE (16:11)
[2022-03-03 16:18] LABS: Albumin 2.7 g/dL (3.4-5.0); Bilirubin Direct 0.5 mg/dL (0-0.2); Bilirubin Total 1.6 mg/dL (0.2-1.0); Magnesium 2.4 mg/dL (1.6-2.4); Potassium 4.2 mmol/L (3.5-5.1); Protein, Total 6.3 g/dL (6.4-8.2)
[2022-03-03 16:20] LABS: Troponin High Sensitivity 146.1 pg/mL (<58.9)
[2022-03-03 16:25] LABS: Phosphorus 3.9 mg/dL (2.5-4.9)
[2022-03-03 16:26] LABS: Thyroid Stimulating Hormone 4.59 uIU/mL (0.358-3.740)
[2022-03-03 16:57] LABS: SARS-CoV-2 Antigen Rapid Res Negative (Negative)
[2022-03-03 17:12] LABS: Absolute Lymphocytes (CBC) 1.8 K/uL (0.7-4.9); Hematocrit 42.3 % (36.0-45.0); Lymphocytes % 8.6 % (15.3-44.8); MCV 91.5 fL (80-100); MPV 9.4 fL (7.6-11.3); RBC Red Blood Cell Count 4.62 M/uL (3.86-4.86)
[2022-03-03 18:03] LABS: Blood Morphology Comment NOT SEEN (NOT SEEN)
[2022-03-03] MEDS ORDERED: VANCOMYCIN 500 MG/VIAL ONE (18:03)
[2022-03-03] MEDS ORDERED: NA CHLORIDE 0.9% 500 ML ONE (18:03)
[2022-03-03] MEDS ORDERED: VANCOMYCIN 1 GM/VIAL ONE (18:03)
[2022-03-03 18:05] LABS: Platelet Estimate ADEQ
--- NOTE | 2022-03-03 19:42 | CON ---
Date of Consultation: 03/03/2022 Reason For Consultation: Tachycardia and shortness of breath. History Of Present Illness: This is a 76-year-old female, poor historian, very confused. She was br ought in because of fast heart beat, altered mental status, significant lower extremity edema, and sh ortness of breath. The patient as outlined above is poor historian and not able to give me a good hi story. Denies having any specific symptoms of chest pain, dysuria, polyuria, or urinary urgency. Past Medical History: As per chart, has history of atrial fibrillation and peripheral vascular disea se. Medications: Refer to reconciliation sheet for detailed list. Allergies: NO KNOWN DRUG ALLERGIES. Family History: No premature coronary artery disease or cancer. Social History: Does not smoke or drink or use any drugs. Review of Systems: All systems reviewed and they were negative except for mentioned in HPI. Physical Examination: Vital Signs: Reviewed. Head And Neck: Pupils are equal and reactive to light. Intact eye movements. Positive JVD. No cer vical lymphadenopathy. Neck is supple. Thyroid is not enlarged. Lungs: Positive rhonchi bilaterally. No accessory muscle use or muscle retraction. Heart: Regular rate and rhythm and tachycardic. Abdomen: Soft, nontender. Bowel sounds positive. No organomegaly. No masses or hernia. No rigidi ty or rebound. Extremities: 3 to 4+ edema with chronic skin changes suggestive of chronic edema. Pulses are intact . No clubbing or cyanosis. Neurologic: Alert and awake, but confused. No focal deficits appreciated. Lymph Nodes: No cervical or axillary lymphadenopathy. Investigations: All blood work is still pending. On EKG, she has atrial flutter with rapid ventricu lar response. Assessment And Recommendation: 1.Atrial flutter/fibrillation with rapid ventricular response, started her on amiodarone drip for 24 hours and based on her creatinine and hemoglobin, also an anticoagulant to be started. After 24 layla rs of amiodarone load, we will plan for transesophageal echocardiogram guided cardioversion. 2.Shortness of breath with significant lower extremity edema. Definitely, congestive heart failure symptoms. Obtain echocardiogram and aggressive diuresis with Lasix to be implemented. The dose and frequency are to be decided based on the results of her blood work. 3.Altered mental status. Recommend panculture, rule out infection as an etiology. SR/MODL Voice ID: [id number] Report ID: [id number]
[2022-03-03 19:46] VITALS: TEMP 98.6
[2022-03-03 19:49] VITALS: BP 121/83; O2SAT 93
[2022-03-03] MEDS ORDERED: METOPROLOL TAR 50 MG TAB PO SCH (21:00)
[2022-03-04] MEDS ORDERED: LEVOTHYROXINE SOD 0.05 MG TABLET PO SCH (06:30)
[2022-03-04] MEDS ORDERED: ASPIRIN 81 MG CHEWABLE TABLET PO SCH (09:00)
--- NOTE | 2022-03-04 15:34 | EKG ---
Test Date: 2022-03-03 Test Time: 12:53:39 Desktop Analyst: ALP MEASUREMENT RESULTS: Intervals: Rate: 139 [place]: 232 QRSD: 138 QT: 380 QTc: 578 [place]: P: 50 [place]: 232 QRS: -65 T: 52 INTERPRETIVE STATEMENTS: Atrial flutter with RVR Right bundle branch block Left anterior fascicular block Bifascicular block Abnormal ECG Compared to ECG 04/16/2021 04:00:24 First degree AV block now present Sinus rhythm no longer present Atrial premature complex(es) no longer present Aberrant conduction of supraventricular beat(s) no longer present Bifascicular block still present Electronically Signed On 03-04-22 15:32:17 DISPOSAL MAN by Bakari Ayala
== END 2022-03-03 19:40 | disposition short-term general hospital (02) ==
LOC: ER 12:50 → ERHOLD 14:48 → UNDOADMIN 14:48 → UNDODISIN 19:40
DX: R41.82 Altered mental status, unspecified (principal); I26.99 Other pulmonary embolism without acute cor pulmonale; I65.21 Occlusion and stenosis of right carotid artery; I22.2 Subsequent non-ST elevation (NSTEMI) myocardial infarction; I21.9 Acute myocardial infarction, unspecified; I48.92 Unspecified atrial flutter; L03.90 Cellulitis, unspecified; A41.9 Sepsis, unspecified organism; R53.1 Weakness; R29.708 NIHSS score 8; Z20.822 Contact with and (suspected) exposure to COVID-19
CPT/HCPCS: 93005; 87040; 87088; 85025; 87086; 36415; 83735; 87205; 84100; 85610; 82565; 82947; 80076; 83605 ×2; 85730; 84443; 87077; 87186; 83036; 84484; 84439; 80053; 80307; 70460; 71275; 70450; 71045; 93925; 99285; 87811; Q9967; J0282 ×2; J1644 ×2; J3370; J7060; J7040; 81003; 81015

== ENCOUNTER 2022-04-29 14:20 | Emergency (ER) | payer OTHER ==
--- NOTE | 2022-04-29 17:56 | RAD REPORT ---
EXAM DESCRIPTION: RAD - Abdomen 1 View (KUB) - 04/29/2022 3:43 pm CLINICAL HISTORY: g- TUBE PLACEMENT COMPARISON: No comparisons TECHNIQUE: AP views of the abdomen. FINDINGS: Minimal contrast injection through the gastrostomy tube of reveals contrast opacification of the distal stomach and proximal duodenum. No evidence of extraluminal contrast. Coronal embolizati on material is seen in the right paramidline region. Nonobstructive bowel gas pattern. No air-fluid l evels, free air, or pneumatosis. No suspicious calcifications. No significant bony abnormality. IMPRESSION: Expected contrast opacification of the distal stomach and proximal duodenum. No evidence of extraluminal contrast.
--- NOTE | 2022-04-29 18:17 | EDPHYS ---
Physician Documentation [facility] Name: Renato Contreras Age: 77 yrs Sex: Female : 1945 Arrival Date: 04/29/2022 Time: 14:31 Bed 15 Private MD: ED Physician Carlitos Greco HPI: 04/29 15:08 This 77 yrs old Female presents to ER via EMS with complaints of Tube placement. kdr 15:08 Patient was sent from the half-way for determination of her G-tube is in the proper kdr place. Patient may have pulled the tube out. The events leading up to her arrival here are not clear. On exam the tube appears to be properly placed. Patient does not have any abdominal pain on palpation.. Onset: The symptoms/episode began/occurred just prior to arrival. Severity of symptoms: At their worst the symptoms were mild. It is unknown whether or not the patient has had similar symptoms in the past. It is unknown whether or not the patient has recently seen a physician. Historical: - Allergies: 14:47 No Known Allergies; db - PMHx: 14:47 Atrial Fib; PAD; dysphagia; Cerebrovascular accident; db - Immunization history:: Adult Immunizations unknown. - Social history:: Smoking status: Patient denies any tobacco usage or history of. ROS: 15:08 Constitutional: Negative for fever, chills, and weight loss. kdr 15:08 Abdomen/GI: Positive for There is a G-tube which appears to be appropriately placed at, intact and not draining in the left upper quadrant. She has no pain with palpation around the site or in her abdomen in general.. Exam: 15:08 Constitutional: This is a well developed, well nourished patient who is awake, alert, kdr and in no acute distress. 15:08 Abdomen/GI: Inspection: obese Bowel sounds: active, all quadrants, Palpation: soft, nontender, in all quadrants, rebound tenderness, is not appreciated, voluntary guarding, is not appreciated, involuntary guarding, is not appreciated. Vital Signs: 14:25 BP 136 / 79; Pulse 116; Resp 18; Temp 97.5(TE); Pulse Ox 100% on 2 lpm NC; db 15:00 BP 118 / 84; Pulse 98; Resp 16; Pulse Ox 95% on 2 lpm NC; db 16:30 BP 120 / 99; Pulse 89; Resp 16; Pulse Ox 99% on 2 lpm NC; db 17:30 BP 105 / 55; Pulse 80; Resp 18; Pulse Ox 99% on 2 lpm NC; db MDM: 15:08 Data reviewed: vital signs, nurses notes, lab test result(s), radiologic studies. kdr 18:16 Patient medically screened. kdr 04/29 15:07 Order name: Abdomen 1 View (KUB) XRAY; Complete Time: 18:15 kdr Administered Medications: No medications were administered Disposition Summary: 04/29/22 18:16 Discharge Ordered Location: Home kdr Problem: new kdr Symptoms: are resolved kdr Condition: Stable kdr Diagnosis - G-tube placement confirmation - placement confirmed kdr Followup: kdr - With: Private Physician - When: 2 - 3 days - Reason: If symptoms return, Further diagnostic work-up, Recheck today's complaints, Continuance of care, Re-evaluation by your physician Discharge Instructions: - Discharge Summary Sheet kdr - How to Care for a Feeding Tube, [id number] kdr - How To Give Medicine Through a Feeding Tube kdr - How to Give a Feeding Through a Feeding Tube kdr Forms: - Medication Reconciliation Form kdr - Thank You Letter kdr Signatures: Dispatcher [employer] Carlitos Cole MD MD kdr Laura Sharp, RN RN db
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
[2022-04-29 21:00] VITALS: TEMP 97.5
[2022-04-29 21:02] VITALS: O2SAT 99
[2022-04-29 21:06] VITALS: BP 121/91
== END 2022-04-29 19:06 | disposition home or self-care (01) ==
LOC: ER 14:20
DX: Z93.1 Gastrostomy status (principal)
CPT/HCPCS: 74018; 99283